=== PATIENT | male | born 1940 | race Caucasian/White ===

== ENCOUNTER 2021-01-25 17:37 | Inpatient (IN) | payer MEDICARE, OTHER ==
[~2021-01-25] VITALS: Ht 188 cm; Wt 145.0 kg
[~2021-01-25 17:37] MED LIST: ALBU90OI6 INH; ASPI81CH PO; ATEN100 PO; AZIT250 PO; Adipex-P37.5 MG PO; BICA50 PO; BUPR100 PO; CARB25 PO; CARBIDOPA-LEVO1 EA15 PO; CLON2 PO; CYCL10 PO; EXEN5PENI SQ; FENO160 PO; FLUT PO; FURO40 PO; FURO80 PO; GABA300 PO; GLYB2.5 PO; GLYB5 PO; Glucophage 850850 MG PO; HYDACE10B PO; HYDACE5 PO; LEVCAR2510 PO; LEVSOD100 PO; LISI20 PO; LOVA20 PO; LOVA40 PO; MELO7.5 PO; METF500 PO; MONT10T PO; NAPR500 PO; OXYB5 PO; POTA10T PO; POTCHL20ER PO; PRAHYD1AE TOP; PRED20 PO; SULTRIDS PO
[2021-01-25 18:16] LABS: Source, Urine Catheter
[2021-01-25 18:19] LABS: BASOPHILS ABSOLUTE AUTO 0.03 K/mm3 (0.00-0.23); BASOPHILS PERCENT AUTO 0 % (0-2); EOSINOPHILS ABSOLUTE AUTO 0.06 K/mm3 (0.00-0.68); EOSINOPHILS PERCENT AUTO 0 % (0-6); Hematocrit 42.3 % (37.0-53.0); Hemoglobin 13.8 g/dL (13.5-17.5); IMMATURE GRAN ABSOLUTE AUTO 0.09 K/mm3 (0.00-0.10); IMMATURE GRAN PERCENT AUTO 1 % (0-1); LYMPHOCYTES ABSOLUTE AUTO 1.04 K/mm3 (0.84-5.20); LYMPHOCYTES PERCENT AUTO 6 % (21-46); MONOCYTES ABSOLUTE AUTO 0.58 K/mm3 (0.16-1.47); MONOCYTES PERCENT AUTO 3 % (4-13); Mean Corpuscular HGB 30.2 pg (26.0-34.0); Mean Corpuscular HGB Conc 32.6 g/dL (31.5-36.5); Mean Corpuscular Volume 93 fL (80-100); Mean Platelet Volume 11.1 fL (9.1-12.4); NEUTROPHILS ABSOLUTE AUTO 16.17 K/mm3 (1.96-9.15); NEUTROPHILS PERCENT AUTO 90 % (41-73); Platelet Count 287 K/mm3 (150-400); RDW Coefficient Variation 13.1 % (11.7-14.2); RDW Standard Deviation 44.1 fL (35.1-46.3); Red Blood Cell Count 4.57 M/mm3 (4.30-5.90); White Blood Cell Count 17.97 K/mm3 (4.00-11.30)
[2021-01-25 18:39] LABS: Appearance, Urine Hazy (Clear); Bilirubin, Urine Neg (Neg); Blood, Urine 1+ (Neg); Color, Urine Yellow (P-Yellow); Glucose Qualitative, Urine Neg (Neg); Ketones, Urine Neg (Neg); Leukocyte Esterase, Urine Neg (Neg); Nitrite, Urine Neg (Neg); Protein, Urine Neg (Neg); Urobilinogen, Urine NORM (Normal)
[2021-01-25 18:45] LABS: Bacteria Mod /hpf; Squamous Epithelial Cells Few /hpf (Few)
[2021-01-25 18:46] LABS: Amorphous Light (0-Heavy)
[2021-01-25 19:44] LABS: Albumin, Blood 3.1 g/dL (3.4-5.0); Albumin/Globulin Ratio 0.7 (0.8-1.8); Bilirubin, Total 0.3 mg/dL (0.1-1.0); Bun/Creatinine Ratio 31.5 (12.0-20.0); Calcium, Blood 8.8 mg/dL (8.5-10.1); Creatinine, Blood 3.81 mg/dL (0.60-1.20); Globulin, Blood 4.6 g/dL (2.2-4.0); Potassium, Blood 6.1 mmol/L (3.5-5.5); Total Protein, Blood 7.7 g/dL (6.4-8.2)
[2021-01-25 19:53] LABS: SARS-Cov-2 (COVID-19) PCR, MMC NEGATIVE (NEGATIVE)
[2021-01-25] MEDS ORDERED: MELATONIN5 M1 PO (20:05)
[2021-01-25] MEDS ORDERED: MIRT15 PO (20:06)
[2021-01-25] MEDS ORDERED: ROPINIROLE HCL4 M1 PO (20:06)
[2021-01-25] MEDS ORDERED: TRAZ50 PO (20:06)
[2021-01-25] MEDS ORDERED: OMEP20ER PO (20:06)
[2021-01-25] MEDS ORDERED: Crestor40 MG PO (20:06)
[2021-01-25] MEDS ORDERED: CARBIDOPA-LEVO1 EA17 PO (20:09)
[2021-01-25] MEDS ORDERED: CLOP75 PO (20:10)
[2021-01-25] MEDS ORDERED: FURO40 PO (20:10)
[2021-01-25] MEDS ORDERED: DONE5 PO (20:10)
[2021-01-25] MEDS ORDERED: GLIM2 PO (20:11)
[2021-01-25] MEDS ORDERED: IPRATROPIUM BRO30 ML (20:11)
[2021-01-25] MEDS ORDERED: POTA8 PO (20:12)
[2021-01-25] MEDS ORDERED: VITAMIN D31000 UNI1 PO (20:14)
[2021-01-25] MEDS ORDERED: EUTHYROX112 MCG PO (20:14)
[2021-01-25] MEDS ORDERED: LISI20 PO (20:15)
[2021-01-25 21:19] LABS: C-REACTIVE PROTEIN, EXT RANGE 2.7 mg/dL (0.000-0.300)
[2021-01-25] MEDS ORDERED: [UNRECOGNIZED DRUG - OTHER] TOP (23:43)
--- NOTE | 2021-01-26 | NUR ---
ASSUMED CARE OF PATIENT AT APPROXIMATELY 2255 FROM ED [facility]. PATIENT ARRIVED TO UNIT VIA STRETCHER; TRANSFER VIA SLIDE SHEET AND MAX ASSIST FROM ED TO PCU STRETCHER. PATIENT LETHARGIC; WAKES TO VERBAL STIMULUS AND PAIN STIMULUS AT TIMES; REPORTS LEGS HURT; CHRONIC WOUNDS; PHOTOS TAKEN. ADMISSION COMPLETE. AFIB ON TELE; OXYGEN SATURATION ABOVE 90% ON 5-6 LPM NC. SEPSIS BOLUS STARTED PER ORDER. PIV X2.
--- NOTE | 2021-01-26 02:50 | NUR ---
CALLED DR. MOONEY TO REPORT BLADDER SCAN OF [phone]; NO URINE OUTPUT SINCE ARRIVAL
[2021-01-26 03:28] LABS: Source, Urine Catheter
[2021-01-26 03:30] LABS: Appearance, Urine Clear (Clear); Bilirubin, Urine Neg (Neg); Blood, Urine Neg (Neg); Color, Urine Yellow (P-Yellow); Glucose Qualitative, Urine Neg (Neg); Ketones, Urine Neg (Neg); Leukocyte Esterase, Urine Neg (Neg); Nitrite, Urine Neg (Neg); Protein, Urine 1+ (Neg); Specific Gravity, Urine 1.015 (1.003-1.022); Urobilinogen, Urine NORM (Normal)
[2021-01-26 04:01] LABS: EOSINOPHILS PERCENT AUTO 0 % (0-6); Hemoglobin 9.5 g/dL (13.5-17.5); IMMATURE GRAN ABSOLUTE AUTO 1.27 K/mm3 (0.00-0.10); IMMATURE GRAN PERCENT AUTO 3 % (0-1); LYMPHOCYTES ABSOLUTE AUTO 3.06 K/mm3 (0.84-5.20); LYMPHOCYTES PERCENT AUTO 7 % (21-46); MONOCYTES ABSOLUTE AUTO 2.61 K/mm3 (0.16-1.47); MONOCYTES PERCENT AUTO 6 % (4-13); Mean Corpuscular HGB 30.8 pg (26.0-34.0); Mean Corpuscular HGB Conc 32.8 g/dL (31.5-36.5); Mean Corpuscular Volume 94 fL (80-100); Mean Platelet Volume 11.2 fL (9.1-12.4); NEUTROPHILS ABSOLUTE AUTO 39.95 K/mm3 (1.96-9.15); NEUTROPHILS PERCENT AUTO 85 % (41-73); Platelet Count 238 K/mm3 (150-400); RDW Coefficient Variation 13.2 % (11.7-14.2); RDW Standard Deviation 45.3 fL (35.1-46.3); Red Blood Cell Count 3.08 M/mm3 (4.30-5.90); White Blood Cell Count 46.94 K/mm3 (4.00-11.30)
[2021-01-26 04:04] LABS: BASOPHILS ABSOLUTE AUTO 0.05 K/mm3 (0.00-0.23); BASOPHILS PERCENT AUTO 0 % (0-2)
[2021-01-26 04:20] LABS: Alanine Aminotransfer (ALT/SGP 11 U/L (12-78); Albumin, Blood 2.5 g/dL (3.4-5.0); Albumin/Globulin Ratio 0.7 (0.8-1.8); Alk Phos 46 U/L (50-136); Anion Gap 5 mmol/L (6-16); Aspartate Aminotrans (AST/SGOT 11 U/L (12-37); Bilirubin, Total 0.3 mg/dL (0.1-1.0); Blood Urea Nitrogen 119 mg/dL (8-24); Bun/Creatinine Ratio 29.3 (12.0-20.0); CO2, Blood 23 mmol/L (21-32); Calcium, Blood 7.9 mg/dL (8.5-10.1); Chloride, Blood 112 mmol/L (98-108); Creatinine, Blood 4.06 mg/dL (0.60-1.20); Globulin, Blood 3.8 g/dL (2.2-4.0); Glomerular Filtration Rate 14 (60-); Glucose, Blood 184 mg/dL (70-99); Magnesium, Blood 1.6 mg/dL (1.6-2.4); Phosphorus, Blood 4.2 mg/dL (2.5-4.9); Potassium, Blood 5.5 mmol/L (3.5-5.5); Sodium, Blood 140 mmol/L (136-145); Total Protein, Blood 6.3 g/dL (6.4-8.2); Vancomycin, Random 13.4 ug/mL
--- NOTE | 2021-01-26 06:21 | NUR ---
NO ACUTE CHANGES; PATIENT SLEPT MOST OF THE SHIFT. VSS. URINARY CATH PLACED.
--- NOTE | 2021-01-26 13:36 | NUR ---
1130- CALLED DR ANDREWS AND RESIDENT LALI TO COME AND EVAL PT AT BEDSIDE. PT MORE OBTUNDED BARELY RESPONDING TO STERNAL RUB. REQUIRING MORE OXYGEN FROM 3L NC TO 10L ORAL BREATING. PERIODS OF APNEA. PERIODS OF TREMORS (HX PARKINSONS). DIURESING- 800ML OFF LAST 2 HOURS, BP HAS BEEN A LITTLE LOWER. VBG CHECKED CO2 WNL. BOTH DR'S AT BEDSIDE TO EVAL. NEW ORDERS TO FOLLOW.
[2021-01-26 13:47] LABS: BASOPHILS ABSOLUTE AUTO 0.11 K/mm3 (0.00-0.23); BASOPHILS PERCENT AUTO 0 % (0-2); EOSINOPHILS ABSOLUTE AUTO 0.07 K/mm3 (0.00-0.68); EOSINOPHILS PERCENT AUTO 0 % (0-6); Hematocrit 28.1 % (37.0-53.0); Hemoglobin 9.2 g/dL (13.5-17.5); IMMATURE GRAN ABSOLUTE AUTO 0.42 K/mm3 (0.00-0.10); IMMATURE GRAN PERCENT AUTO 1 % (0-1); LYMPHOCYTES ABSOLUTE AUTO 2.58 K/mm3 (0.84-5.20); LYMPHOCYTES PERCENT AUTO 7 % (21-46); MONOCYTES ABSOLUTE AUTO 2.16 K/mm3 (0.16-1.47); MONOCYTES PERCENT AUTO 6 % (4-13); Mean Corpuscular HGB 30.8 pg (26.0-34.0); Mean Corpuscular HGB Conc 32.7 g/dL (31.5-36.5); Mean Corpuscular Volume 94 fL (80-100); Mean Platelet Volume 11.1 fL (9.1-12.4); NEUTROPHILS ABSOLUTE AUTO 32.34 K/mm3 (1.96-9.15); NEUTROPHILS PERCENT AUTO 86 % (41-73); Platelet Count 246 K/mm3 (150-400); RDW Coefficient Variation 13.3 % (11.7-14.2); RDW Standard Deviation 46.3 fL (35.1-46.3); Red Blood Cell Count 2.99 M/mm3 (4.30-5.90); White Blood Cell Count 37.68 K/mm3 (4.00-11.30)
[2021-01-26 14:08] LABS: Bun/Creatinine Ratio 29.1 (12.0-20.0); Calcium, Blood 8.5 mg/dL (8.5-10.1); Creatinine, Blood 3.78 mg/dL (0.60-1.20); Potassium, Blood 4.8 mmol/L (3.5-5.5)
--- NOTE | 2021-01-26 17:25 | NUR ---
SUMMARY- PT VERY OBTUNDED THIS AM AND HAS BECOME MORE ALERT THROUGHOUT THE SHIFT. AWAKENS EASILY WITH VERBAL STIM IS JOVIAL AND RESTLESS WHEN AWAKE. PULLS OFF TELE LEADS, PULLED OUT ONE IV, PULLED NAME BAND OFF- AND BP CUFF CONTINUALLY DESPITE FREQ REMINDERS. DIURESING PT PULLED OFF OVER 3 LITERS THIS 12 HR SHIFT. JO PATENT, ON ICE FOR 24HR UUN. PT TOLERATED PILLS AT 1330 WITH SIPS OF WATER, WAS ABLE TO GET HIM HIS SINIMET, PLAVIX AND THYROID. PT HAVING LESS APNEA NOT THAT HE IS AWAKENING AND REQUIRING LESS OXYGEN, AT 3L NC, SATS 95-97%. FINE CX IN BASES OTHERWISE DIM BASES. LE EDEMA WITH OPEN SORES AND SCAND SS DRAINAGE, LEGS BEGINING TO WRINKLE PULLING OFF MORE FLUIDS. ECHO DONE 1635- PENDING RESULTS. SPEECH UNABLE TO EVAL BECAUSE PT TO LETHARGIC THIS AM. CONT NA-BIBICARB AT 50ML/HR FOR GENTLE HYDRATION. FREQ SAFETY CHECKS PT AWAKENS AND PULLING THINGS OFF. WILL REPORT TO NOCS
--- NOTE | 2021-01-27 01:57 | NUR ---
PT KEEPS PULLING OUT OF THE WRIST RESTRAINTS - KEEP PLACING BACK ON, BUT PT IS ABLE TO REMOVE THEM EACH TIME. PT KEEPS PULLING OF TELE PADS - KEEP REMINDING PT FOR THE NEED TO KEEP THE TELE PADS ON FOR HEART MONITORING, SAYS "I'LL TRY." CALL LIGHT WITHIN REACH. JO/24 HOUR URINE ON ICE THROUGHOUT THE NIGHT. BED ALARM ON FOR PATIENT SAFETY.
[2021-01-27 04:03] LABS: BASOPHILS ABSOLUTE AUTO 0.06 K/mm3 (0.00-0.23); BASOPHILS PERCENT AUTO 0 % (0-2); EOSINOPHILS PERCENT AUTO 0 % (0-6); Hematocrit 31.3 % (37.0-53.0); Hemoglobin 10.2 g/dL (13.5-17.5); IMMATURE GRAN ABSOLUTE AUTO 0.28 K/mm3 (0.00-0.10); IMMATURE GRAN PERCENT AUTO 1 % (0-1); LYMPHOCYTES ABSOLUTE AUTO 2.32 K/mm3 (0.84-5.20); LYMPHOCYTES PERCENT AUTO 8 % (21-46); MONOCYTES ABSOLUTE AUTO 1.64 K/mm3 (0.16-1.47); MONOCYTES PERCENT AUTO 6 % (4-13); Mean Corpuscular HGB 30.3 pg (26.0-34.0); Mean Corpuscular HGB Conc 32.6 g/dL (31.5-36.5); Mean Corpuscular Volume 93 fL (80-100); Mean Platelet Volume 11.6 fL (9.1-12.4); NEUTROPHILS ABSOLUTE AUTO 23.76 K/mm3 (1.96-9.15); NEUTROPHILS PERCENT AUTO 84 % (41-73); Platelet Count 243 K/mm3 (150-400); RDW Coefficient Variation 13.3 % (11.7-14.2); RDW Standard Deviation 45.2 fL (35.1-46.3); Red Blood Cell Count 3.37 M/mm3 (4.30-5.90); White Blood Cell Count 28.16 K/mm3 (4.00-11.30)
[2021-01-27 04:22] LABS: Albumin, Blood 2.5 g/dL (3.4-5.0); Anion Gap 6 mmol/L (6-16); Blood Urea Nitrogen 98 mg/dL (8-24); Bun/Creatinine Ratio 29.9 (12.0-20.0); CO2, Blood 28 mmol/L (21-32); CPK Creatine Kinase 227 U/L (39-308); Calcium, Blood 8.9 mg/dL (8.5-10.1); Chloride, Blood 109 mmol/L (98-108); Creatinine, Blood 3.28 mg/dL (0.60-1.20); Glomerular Filtration Rate 18 (60-); Glucose, Blood 143 mg/dL (70-99); Magnesium, Blood 1.5 mg/dL (1.6-2.4); Phosphorus, Blood 4.5 mg/dL (2.5-4.9); Potassium, Blood 4.4 mmol/L (3.5-5.5); Sodium, Blood 143 mmol/L (136-145); Uric Acid, Blood 10.5 mg/dL (3.5-7.2)
--- NOTE | 2021-01-27 05:29 | NUR ---
PT PULLED HIS SECOND IV OUT - WRIST RESTRAINTS WERE PLACED ON, BUT PT KEEPS REMOVING THEM - UPDATED WILLIE GUILLAUME. WILLIE GUILLAUME AWARE PT KEEPS REMOVING WRIST RESTRAINTS. SOFT MITT RESTRAINTS PLACED ON.
[2021-01-27 08:45] LABS: Vancomycin, Random 13.5 ug/mL
[2021-01-27 11:02] LABS: Protein, Urine Quantitative 24.8 mg/dL (0.0-11.9)
[2021-01-27 14:42] LABS: Free Thyroxine 1.18 ng/dL (0.70-1.60)
[2021-01-27 14:45] LABS: Triiodothyronine, Free 1.03 pg/mL (2.18-3.98)
--- NOTE | 2021-01-27 18:43 | NUR ---
SUMMARY- PT ALERT TO SELF AND FAMILY ANT THAT HE'S IN THE HOSPITAL. HE IS VERBAL AND ABLE TO RELAY INFORMATION OF HIS HISTORY. HE IS ABLE TO EAT A ADA DIET WITH SET UP AND ASSIST. SWALLOW INTACT WITH SLOW SMALL BITES. THIN LIQ SWALLOWS MEDS WHOLE. CONTINUING TO DIURESE WITH JO IN PLACE. PT PLACED IN RESTRAINTS THIS AM AFTER PULLING OUT HIS IV WITCH WAS THE 3RD THAT NIGHT. GOT PT UP IN CHAIR, 2 PIVOT TX WITH GAIT BELT. UP IN CHAIR ALL DAY SINCE 1000, REFUSES TO GO BACK TO BED. HAS BECOME LESS AGITATED IN THE CHAIR. ABLE TO JUST RESTRAIN THE L HAND TO PROTECT THE IV IN THE RA. CONT TO PULL TELE LEADS OFF... BUT BETTER DIRECTABLE THIS PM AND LESS FIDGITY. REPORT GIVEN TO DAUGHTER JIHAN FROM [facility], LIKES DAILY REPORTS. PT TOOK O2 OFF, CHECKED SATS HR LATER AND REMAINS 92%. ON ROOM AIR, JUSTO CHAHAL
--- NOTE | 2021-01-27 20:05 | NUR ---
ASSUMED CARE OF PATIENT AT APPROXIMATELY 1900 FROM MURALI Weber RN. PATIENT ALERT AND ORIENTED TO SELF AND ; CONFUSED ON LOCATION, CURRENT DATE AND EVENT; VERY FORGETFUL; PULLS ON LINES/CORDS/TUBES; TUFF CUFF RESTRAINTS IN PLACE DUE TO SOFT WRIST RESTRAINTS BEING TOO SMALL FOR WRISTS AND PATIENT ABLE TO PULL THEM OFF. PATIENT LAUGHS WHEN ASKED QUESTIONS AND ANSWERS "I DON'T KNOW" FOR MOST OF THEM; SITTING UP IN RECLINER; FALLING ASLEEP OFF AND ON. AFIB/NSR ON TELE; OXYGEN SATURATION ABOVE 90% ON ROOM AIR. PIV X2. MULTIPLE WOUNDS TO LEGS.
[2021-01-27 21:50] LABS: U Amphetamine Screen Not Detected; U Barbituate Screen Not Detected; U Benzodiazapine Screen Not Detected; U Buprenorphine Screen Not Detected; U Cannabinoids Screen Not Detected; U Cocaine Screen Not Detected; U Methadone Screen Not Detected; U Methamphetamine Screen Not Detected; U Opiates Screen Not Detected; U Oxycodone Screen Not Detected; U Phencyclidine Screen Not Detected; U Propoxyphene Screen Not Detected
[2021-01-28 04:10] LABS: Hematocrit 33.1 % (37.0-53.0); Hemoglobin 10.5 g/dL (13.5-17.5)
[2021-01-28 04:41] LABS: Albumin, Blood 2.6 g/dL (3.4-5.0); Anion Gap 7 mmol/L (6-16); Blood Urea Nitrogen 81 mg/dL (8-24); Bun/Creatinine Ratio 31.6 (12.0-20.0); CO2, Blood 27 mmol/L (21-32); Chloride, Blood 104 mmol/L (98-108); Creatinine, Blood 2.56 mg/dL (0.60-1.20); Glomerular Filtration Rate 24 (60-); Glucose, Blood 194 mg/dL (70-99); Magnesium, Blood 1.9 mg/dL (1.6-2.4); Phosphorus, Blood 3.8 mg/dL (2.5-4.9); Potassium, Blood 3.9 mmol/L (3.5-5.5); Sodium, Blood 138 mmol/L (136-145)
--- NOTE | 2021-01-28 06:38 | NUR ---
PATIENT SLEPT ABOUT TWO HOURS OFF AND ON; CALLING OUT INTO HALLWAY AND REPORTS "I DON'T KNOW" WHEN ASKED WHAT HE NEEDS. PATIENT PULLED OUT IV WHEN SITTING IN CHAIR; NEW PIV PLACED. VSS. ATTEMPTED TO GET OUT OF BED MULTIPLE TIMES.
[2021-01-28 09:41] LABS: Vancomycin, Random 16.9 ug/mL
--- NOTE | 2021-01-28 10:55 | NUR ---
TRANSFER TO MEDICAL FLOOR REPORT GIVEN TO DAYA SWANSON ON MEDICAL FLOOR. ITEMS SENT WITH PT TO ROOM 337. PT STABLE AT TIME OF TRANSFER.
--- NOTE | 2021-01-28 18:12 | NUR ---
SHIFT SUMMARY PATIENT TRANSFER FROM PCU EARLIER THIS SHIFT. PATIENT WAS ADMITTED FOR SEPSIS AND IS ALERTED TO SELF ONLY. PATIENT IS HAS ADA DIET. PATIENT HAS PULLED OUT HIS IV THIS SHIFT. HAS ONE ADDITIONAL IV. PATIENT HAS SCATTERED WOUNDS AND HAS BEEN REPOSITIONED FREQUENTLY AND OCCASIONALY TRIES TO GET OUT OF BED.
--- NOTE | 2021-01-29 03:26 | NUR ---
DISCUSSED CPAP W/RESPIRATORY THERAPY PT IS NONCOMPLIANT WITH CPAP AT HOME. PT IS KNOWN TO REFUSE CPAP AT HIS FACILITY. PT IS VERY CONFUSED AND IMPULSIVE, FREQUENTLY ATTEMPTING TO EXIT THE BED. HE PULLS IV'S OUT FREQUENTLY. DUE TO HIS CONFUSION, I DO NOT BELIEVE HIM TO BE COMPETENT ENOUGH TO SIGN PAPERWORK REGARDING THIS. I ALSO DO NOT BELIEVE HE WILL TOLERATE A CPAP DEVICE ON HIS FACE.
--- NOTE | 2021-01-29 04:35 | NUR ---
SHIFT SUMMARY ADMITTED FOR FROM [facility] FOR AMS/RL ON CKD. FULL CODE. PLAN WILL BE TO DC TO [facility] W/HH WHEN STABLE.JO IS IN PLACE. PT IS CONFUSED, IMPULSIVE, FREQUENTLY TRYING TO EXIT BED, FREQUENTLY REMOVING IV'S, ANOTHER IV REMOVED THIS SHIFT. IV ANTIB RX IS SCHEDULED. HE IS ON PLAVIX. I SAW AN ORDER FOR CPAP, BUT RESPIRATORY THERAPY AND MYSELF DO NOT THINK HE WILL TOLERATE IT. I SAW IN DR'S NOTES THAT THEY WANTED A FLUID RESTRICTION, BUT I CANNOT FIND AN ORDER FOR IT. LEGS ARE EXCORIATED - BILAT
[2021-01-29 05:48] LABS: BASOPHILS ABSOLUTE AUTO 0.04 K/mm3 (0.00-0.23); BASOPHILS PERCENT AUTO 0 % (0-2); EOSINOPHILS ABSOLUTE AUTO 0.67 K/mm3 (0.00-0.68); EOSINOPHILS PERCENT AUTO 5 % (0-6); Hematocrit 33.9 % (37.0-53.0); Hemoglobin 11.3 g/dL (13.5-17.5); IMMATURE GRAN ABSOLUTE AUTO 0.08 K/mm3 (0.00-0.10); IMMATURE GRAN PERCENT AUTO 1 % (0-1); LYMPHOCYTES ABSOLUTE AUTO 3.09 K/mm3 (0.84-5.20); LYMPHOCYTES PERCENT AUTO 25 % (21-46); MONOCYTES ABSOLUTE AUTO 1.06 K/mm3 (0.16-1.47); MONOCYTES PERCENT AUTO 8 % (4-13); Mean Corpuscular HGB 30.5 pg (26.0-34.0); Mean Corpuscular HGB Conc 33.3 g/dL (31.5-36.5); Mean Corpuscular Volume 91 fL (80-100); Mean Platelet Volume 11.6 fL (9.1-12.4); NEUTROPHILS ABSOLUTE AUTO 7.64 K/mm3 (1.96-9.15); NEUTROPHILS PERCENT AUTO 61 % (41-73); Platelet Count 290 K/mm3 (150-400); RDW Coefficient Variation 12.2 % (11.7-14.2); RDW Standard Deviation 41.2 fL (35.1-46.3); Red Blood Cell Count 3.71 M/mm3 (4.30-5.90); White Blood Cell Count 12.58 K/mm3 (4.00-11.30)
[2021-01-29 06:19] LABS: Anion Gap 8 mmol/L (6-16); Blood Urea Nitrogen 64 mg/dL (8-24); Bun/Creatinine Ratio 27.9 (12.0-20.0); CO2, Blood 29 mmol/L (21-32); Calcium, Blood 9.2 mg/dL (8.5-10.1); Chloride, Blood 103 mmol/L (98-108); Creatinine, Blood 2.29 mg/dL (0.60-1.20); Glomerular Filtration Rate 28 (60-); Glucose, Blood 234 mg/dL (70-99); Potassium, Blood 3.6 mmol/L (3.5-5.5); Sodium, Blood 140 mmol/L (136-145); Vancomycin, Random 19.1 ug/mL
[2021-01-29 14:08] LABS: A/G RATIO 0.8 (0.7-1.7); ALBUMIN 2.6 g/dL (2.9-4.4); ALPHA-1-GLOBULIN 0.3 g/dL (0.0-0.4); BETA GLOBULIN 0.8 g/dL (0.7-1.3); GAMMA GLOBULIN 1.3 g/dL (0.4-1.8); GLOBULIN, TOTAL 3.4 g/dL (2.2-3.9); IMMUNOGLOBULIN A, QN, SERUM 53 mg/dL (61-437); IMMUNOGLOBULIN G, QN, SERUM 679 mg/dL (603-1613); IMMUNOGLOBULIN M, QN, SERUM 958 mg/dL (15-143); M-SPIKE 0.7 g/dL (Not Observed)
--- NOTE | 2021-01-29 16:15 | NUR ---
SHIFT SUMMARY PATIENT IS A/O X2. THE PATIENT IS COOPERATIVE WITH CARE, WORKED WITH PHYSICAL THERAPY AND SPEECH THERAPY THIS SHIFT. NO ACUTE CHANGES NOTED THIS SHIFT. THE PATIENT'S BED ALARM IS ON, AND CALL LIGHT WITHIN REACH.THE PATIENT WILL CALL OUT FOR HELP INSTEAD. THE BED IS IN THE LOWEST POSITION FOR THE PATIENT'S SAFETY.
--- NOTE | 2021-01-30 03:18 | NUR ---
SHIFT SUMMARY PT PRESENTS ON BED REST. NPO. LOWER LEGS ARE EDEMATOUS WITH MULTIPLE OPEN SORES/WOUNDS/SCABS.SKIN ECCHYMOTIC TO UPPER BILAT EXTREMITIES. PT HAS HX OF DEMENTIA, AND IS PLEASANTLY CONFUSED WITH STAFF. JO IN PLACE AND DRAINING TO GRAVITY. ROOM AIR, MAINTAINING SATS ABOVE 92%. DUE TO CONFUSION, CPAP MASK WILL MOST LIKELY NOT BE WELL TOLERATED. PT HAS REMOVED SEVERAL IV'S ON HIS OWN. THIS EVENING, IV WAS INSERTED INTO RIGHT FOREARM FOR IV ANTIBIOTICS. SATS REMAIN ABOVE 92%. VSS, NO ACUTE CHANGES.
[2021-01-30 05:09] LABS: BASOPHILS ABSOLUTE AUTO 0.05 K/mm3 (0.00-0.23); BASOPHILS PERCENT AUTO 0 % (0-2); EOSINOPHILS ABSOLUTE AUTO 0.57 K/mm3 (0.00-0.68); EOSINOPHILS PERCENT AUTO 5 % (0-6); Hemoglobin 11.1 g/dL (13.5-17.5); IMMATURE GRAN ABSOLUTE AUTO 0.08 K/mm3 (0.00-0.10); IMMATURE GRAN PERCENT AUTO 1 % (0-1); LYMPHOCYTES ABSOLUTE AUTO 3.19 K/mm3 (0.84-5.20); LYMPHOCYTES PERCENT AUTO 28 % (21-46); MONOCYTES ABSOLUTE AUTO 1.19 K/mm3 (0.16-1.47); MONOCYTES PERCENT AUTO 10 % (4-13); Mean Corpuscular HGB 30.2 pg (26.0-34.0); Mean Corpuscular HGB Conc 32.6 g/dL (31.5-36.5); Mean Corpuscular Volume 93 fL (80-100); Mean Platelet Volume 11.4 fL (9.1-12.4); NEUTROPHILS ABSOLUTE AUTO 6.54 K/mm3 (1.96-9.15); NEUTROPHILS PERCENT AUTO 56 % (41-73); Platelet Count 284 K/mm3 (150-400); RDW Coefficient Variation 12.1 % (11.7-14.2); RDW Standard Deviation 41.4 fL (35.1-46.3); Red Blood Cell Count 3.67 M/mm3 (4.30-5.90); White Blood Cell Count 11.62 K/mm3 (4.00-11.30)
[2021-01-30 05:31] LABS: Magnesium, Blood 2.2 mg/dL (1.6-2.4)
[2021-01-30 05:57] LABS: Albumin, Blood 2.8 g/dL (3.4-5.0); Anion Gap 7 mmol/L (6-16); CO2, Blood 32 mmol/L (21-32); Calcium, Blood 9.1 mg/dL (8.5-10.1); Chloride, Blood 104 mmol/L (98-108); Creatinine, Blood 2.11 mg/dL (0.60-1.20); Glomerular Filtration Rate 30 (60-); Glucose, Blood 227 mg/dL (70-99); Phosphorus, Blood 3.8 mg/dL (2.5-4.9); Potassium, Blood 3.6 mmol/L (3.5-5.5); Sodium, Blood 143 mmol/L (136-145)
[2021-01-30 05:58] LABS: Blood Urea Nitrogen 57 mg/dL (8-24)
[2021-01-30 09:10] LABS: ANTIGLOMERULAR BM AB 7 units (0-20)
--- NOTE | 2021-01-30 10:36 | NUR ---
LATE ENTRY 01/29/21 0900 PT IN ROOM, AAO TO SELF, PLEASANTLY CONFUSED, REDIRECTABLE BY STAFF. ABLE TO FOLLOW SIMPLE INSTRUCTIONS. PT APPEARS CALM AND COMFORTABLE IN BED. PT OFF RESTRAINTS. NO ATTEMPTS OF BED EXITING NOTED. BED AT LOWEST POSITION W/ ALARM ON. CALL LIGHT WITHIN REACH.
[2021-01-30 13:10] LABS: ANA DIRECT Negative (Negative); ANTIMYELOPEROXIDASE (MPO) ABS <9.0 U/mL (0.0-9.0); ATYPICAL PANCA <1:20 titer (Neg:<1:20); CYTOPLASMIC (C-ANCA) <1:20 titer (Neg:<1:20); PERINUCLEAR (P-ANCA) <1:20 titer (Neg:<1:20)
--- NOTE | 2021-01-30 18:54 | NUR ---
SHIFT SUMMARY THE PATIENT IS NPO, AFTER A SWALLOW STUDY WAS DONE. THE PATIENT WAS STARTED ON TPN AND CLINIMIX THIS SHIFT. THE PATIENT IS RESTING IN BED WITH THE ALARM ON.
[2021-01-31 05:10] LABS: BASOPHILS ABSOLUTE AUTO 0.06 K/mm3 (0.00-0.23); BASOPHILS PERCENT AUTO 1 % (0-2); EOSINOPHILS ABSOLUTE AUTO 0.62 K/mm3 (0.00-0.68); EOSINOPHILS PERCENT AUTO 5 % (0-6); Hematocrit 35.4 % (37.0-53.0); Hemoglobin 11.5 g/dL (13.5-17.5); IMMATURE GRAN PERCENT AUTO 1 % (0-1); LYMPHOCYTES ABSOLUTE AUTO 3.06 K/mm3 (0.84-5.20); LYMPHOCYTES PERCENT AUTO 25 % (21-46); MONOCYTES ABSOLUTE AUTO 1.26 K/mm3 (0.16-1.47); MONOCYTES PERCENT AUTO 10 % (4-13); Mean Corpuscular HGB 30.4 pg (26.0-34.0); Mean Corpuscular HGB Conc 32.5 g/dL (31.5-36.5); Mean Corpuscular Volume 94 fL (80-100); Mean Platelet Volume 11.4 fL (9.1-12.4); NEUTROPHILS ABSOLUTE AUTO 7.17 K/mm3 (1.96-9.15); NEUTROPHILS PERCENT AUTO 58 % (41-73); Platelet Count 289 K/mm3 (150-400); RDW Standard Deviation 41.8 fL (35.1-46.3); Red Blood Cell Count 3.78 M/mm3 (4.30-5.90); White Blood Cell Count 12.27 K/mm3 (4.00-11.30)
[2021-01-31 05:52] LABS: Magnesium, Blood 2.2 mg/dL (1.6-2.4)
[2021-01-31 06:09] LABS: Bun/Creatinine Ratio 23.7 (12.0-20.0); Calcium, Blood 9.2 mg/dL (8.5-10.1); Creatinine, Blood 1.98 mg/dL (0.60-1.20); Potassium, Blood 3.3 mmol/L (3.5-5.5)
--- NOTE | 2021-01-31 17:33 | NUR ---
SHIFT SUMMARY: PT IS DISORIENTED TO SITUATION. FREQUENTLY MOANS BUT DENIES PAIN. IS ABLE TO STAND WITH STAFF ASSIST OF 1. CLINIMIX RUNNING. WOUNDS BLE OPEN TO AIR. HOURLY ROUNDING COMPLETED FOR PT SAFETY BED ALARMS ON AND CALL LIGHT IN REACH.
--- NOTE | 2021-01-31 20:01 | NUR ---
patient extremely anxious, scratching leg wounds open despite intended distractions. sitting on side of bed trying to get oob despite alarms. pleasantly confused, but very little short term memory, and determined to stand on own which would definately cause injury if staff couldn't get to him in time. Call placed to MD to notify, and discuss medication vs restraints.
--- NOTE | 2021-02-01 00:38 | NUR ---
at approximately 2200, patient pulled both his peripheral and powerglide iv accesses out. both IV antibiotic and Clinimix with lipids were running at the time. New 20 guage saline lock placed in left forearm. IV antibiotic was completed, then Clinimix and Lipids were resumed.
[2021-02-01 04:49] LABS: Hematocrit 34.6 % (37.0-53.0); Hemoglobin 11.4 g/dL (13.5-17.5)
[2021-02-01 05:31] LABS: Magnesium, Blood 2.4 mg/dL (1.6-2.4)
[2021-02-01 05:40] LABS: Albumin, Blood 2.8 g/dL (3.4-5.0); Anion Gap 8 mmol/L (6-16); Blood Urea Nitrogen 46 mg/dL (8-24); Bun/Creatinine Ratio 25.8 (12.0-20.0); CO2, Blood 30 mmol/L (21-32); Calcium, Blood 8.9 mg/dL (8.5-10.1); Chloride, Blood 107 mmol/L (98-108); Creatinine, Blood 1.78 mg/dL (0.60-1.20); Glomerular Filtration Rate 37 (60-); Glucose, Blood 264 mg/dL (70-99); Phosphorus, Blood 4.2 mg/dL (2.5-4.9); Potassium, Blood 3.3 mmol/L (3.5-5.5); Sodium, Blood 145 mmol/L (136-145)
--- NOTE | 2021-02-01 08:33 | NUR ---
FULLER BRUSH WORKER SUMMARY Patient awake most of night. pleasant and tries to be cooperative with care, however he has a very little amount of retention, and was constantly trying to swing feet out of bed and scratching wounds open. after this, dory removed both his peripheral line and his powerglide. Peripheral line replaced for IV antibiotics and Clinimix. Order for IV haldol received dand given with no result. Order then received for 0.5mg IV Ativan which worked well to halp him relax. No further issues overnight
--- NOTE | 2021-02-01 10:30 | NUR ---
Met with Shravan this morning in his room. He has a history of Parkinson's disease, DM, HTN, anxiety, dementia, depression, reflux. He was admitted to [facility] on 01/25/21 with sepsis. He lives at [facility]. Shravan is lying in bed. He has picked at the scabs and skin off his legs and has placed the scabs and skin on his bedside table. He is alert, however he appears quite forgetful. When asked how long he has had the Parkinson's disease he said "I don't have that." When asked where he lives and what his usual activity level he stated "I don't know." When asked how long he has had trouble swallowing he said "I don't have any problems with that." He denies pain, shortness of breath. He states he has some numbess to his toes. Nursing reports that pt told ST that he wanted to eat and drink and that he understood the risks of aspirating if he tried to eat. During my visit, Shravan was not oriented enough to be able to understand the risks of his choices of wanting to eat and aspirating. Nursing reports that Shravan will be discharged to rehab this afternoon. If pt is adament about eating, his decision maker will have to sign a waver for him to be able to eat if he continues to show signs of confusion. Comfort care could be an option for care however the current goal of going to rehab to improve function to get back home doesn't align with comfort care at this time. Per CM notes, pt's dtr is in agreement with plan for discharge to rehab this afternoon. PC to remain available for advanced care planning prn. Pt is a high risk of readmission for continued aspiration.
[2021-02-01 11:13] LABS: SARS-Cov-2 (COVID-19) PCR, MMC NEGATIVE (NEGATIVE)
[2021-02-01] MEDS ORDERED: BUME2 PO (11:58)
[2021-02-01] MEDS ORDERED: AMLO5 PO (12:01)
[2021-02-01] MEDS ORDERED: CEFAZOLIN2 GM/50 M3 IV (12:03)
[2021-02-01] MEDS ORDERED: SPIR25 PO (12:04)
--- NOTE | 2021-02-01 16:38 | NUR ---
DISCHARGE SUMMARY PATIENT IV REMOVED WNL. PATIENT BELONGINGS WITH PATIENT UPON DISCHARGE. [facility]. REPORT GIVEN TO [facility] REAL ESTATE SALES SUPERVISOR.
== END 2021-02-01 16:13 | DRG 871 ==
LOC: ER 17:37 → MEDS 20:37 → PCU 20:37 → MEDS 01-28 11:16 → ENPENDDIS 02-01 10:35 → MEDS 02-01 16:13
PROVIDERS: Family Medicine; Hospitalist; Internal Medicine; Internal Medicine Nephrology; Pharmacist; Student in an Organized Health Care Education/Training Program; ADMIT Internal Medicine
DX: A40.1 Sepsis due to streptococcus, group B (principal); G92 Toxic encephalopathy; N17.9 Acute kidney failure, unspecified; E87.2 Acidosis; N25.81 Secondary hyperparathyroidism of renal origin; Z68.41 Body mass index [BMI] 40.0-44.9, adult; N39.0 Urinary tract infection, site not specified; Z20.822 Contact with and (suspected) exposure to COVID-19; Z66 Do not resuscitate; R65.20 Severe sepsis without septic shock; E83.42 Hypomagnesemia; E87.5 Hyperkalemia; I48.91 Unspecified atrial fibrillation; E03.9 Hypothyroidism, unspecified; G43.909 Migraine, unspecified, not intractable, without status migrainosus; G20 Parkinson's disease; F32.9 Major depressive disorder, single episode, unspecified; I12.9 Hypertensive chronic kidney disease with stage 1 through stage 4 chronic kidney disease, or unspecified chronic kidney disease; E11.22 Type 2 diabetes mellitus with diabetic chronic kidney disease; E88.09 Other disorders of plasma-protein metabolism, not elsewhere classified; D63.1 Anemia in chronic kidney disease; E87.6 Hypokalemia; E66.01 Morbid (severe) obesity due to excess calories; R13.10 Dysphagia, unspecified; B96.1 Klebsiella pneumoniae [K. pneumoniae] as the cause of diseases classified elsewhere; K21.9 Gastro-esophageal reflux disease without esophagitis; I89.0 Lymphedema, not elsewhere classified; G47.33 Obstructive sleep apnea (adult) (pediatric); N18.30 Chronic kidney disease, stage 3 unspecified; F02.80 Dementia in other diseases classified elsewhere, unspecified severity, without behavioral disturbance, psychotic disturbance, mood disturbance, and anxiety; G25.81 Restless legs syndrome; G47.00 Insomnia, unspecified; Z88.1 Allergy status to other antibiotic agents; Z88.8 Allergy status to other drugs, medicaments and biological substances; Z91.09 Other allergy status, other than to drugs and biological substances; Z79.899 Other long term (current) drug therapy; Z79.82 Long term (current) use of aspirin; Z79.84 Long term (current) use of oral hypoglycemic drugs; Z85.46 Personal history of malignant neoplasm of prostate; Z98.890 Other specified postprocedural states
CPT/HCPCS: 36415; 51702; 70450; 71045; 73700; 74230; 76770; 80048; 80053; 80069; 80202; 81001; 81050; 82550; 82784; 82947; 83036; 83516; 83520; 83605; 83735; 84100; 84145; 84156; 84165; 84439; 84443; 84481; 84550; 85014; 85018; 85025; 85651; 86038; 86140; 86256; 86334; 87040; 87070; 87075; 87077; 87086; 87147; 87186; 87205; 92526; 92610; 92611; 93005; 93010; 93306; 94762; 96365; 96366; 96367; 96368; 96375; 97110; 97116; 97162; 97166; 97530; 97535; 99285-25; A9270; C1751; J0360; J0690; J0692; J1630; J1644; J1815; J2060; J3370; J3475; J3480; J7030; J7050; J7120; J7799; U0004

== ENCOUNTER 2021-02-06 13:32 | Emergency (ER) | payer MEDICARE, OTHER ==
[~2021-02-06] VITALS: Ht 177.8 cm; Wt 149.7 kg
[~2021-02-06 13:32] MED LIST changes: +AMLO5 PO; +BUME2 PO; +CARBIDOPA-LEVO1 EA17 PO; +CEFAZOLIN2 GM/50 M3 IV; +CLOP75 PO; +Crestor40 MG PO; +DONE5 PO; +EUTHYROX112 MCG PO; +GLIM2 PO; +IPRATROPIUM BRO30 ML; +MELATONIN5 M1 PO; +MIRT15 PO; +OMEP20ER PO; +POTA8 PO; +ROPINIROLE HCL4 M1 PO; +SPIR25 PO; +TRAZ50 PO; +VITAMIN D31000 UNI1 PO; +[UNRECOGNIZED DRUG - OTHER] TOP
[2021-02-06 14:39] LABS: Hematocrit 34.1 % (37.0-53.0); Hemoglobin 11.1 g/dL (13.5-17.5); Mean Corpuscular HGB 30.2 pg (26.0-34.0); Mean Corpuscular HGB Conc 32.6 g/dL (31.5-36.5); Mean Corpuscular Volume 93 fL (80-100); Mean Platelet Volume 12.2 fL (9.1-12.4); Platelet Count 273 K/mm3 (150-400); RDW Coefficient Variation 12.7 % (11.7-14.2); RDW Standard Deviation 42.9 fL (35.1-46.3); Red Blood Cell Count 3.67 M/mm3 (4.30-5.90); White Blood Cell Count 14.32 K/mm3 (4.00-11.30)
[2021-02-06 16:06] LABS: Albumin/Globulin Ratio 0.7 (0.8-1.8); Bilirubin, Total 0.3 mg/dL (0.1-1.0); Bun/Creatinine Ratio 24.4 (12.0-20.0); Calcium, Blood 8.9 mg/dL (8.5-10.1); Creatinine, Blood 1.64 mg/dL (0.60-1.20); Globulin, Blood 4.6 g/dL (2.2-4.0); Potassium, Blood 4.7 mmol/L (3.5-5.5); Total Protein, Blood 7.6 g/dL (6.4-8.2)
== END 2021-02-06 16:50 | disposition home or self-care (01) ==
LOC: ER 13:32
PROVIDERS: Physician Assistant
DX: N17.9 Acute kidney failure, unspecified (principal); I10 Essential (primary) hypertension; G47.30 Sleep apnea, unspecified; E11.9 Type 2 diabetes mellitus without complications; E03.9 Hypothyroidism, unspecified; F03.90 Unspecified dementia, unspecified severity, without behavioral disturbance, psychotic disturbance, mood disturbance, and anxiety; Z88.8 Allergy status to other drugs, medicaments and biological substances; Z91.048 Other nonmedicinal substance allergy status; Z88.1 Allergy status to other antibiotic agents; Z79.84 Long term (current) use of oral hypoglycemic drugs; Z79.899 Other long term (current) drug therapy
CPT/HCPCS: 36415; 80053; 83036; 85027; 99283

== ENCOUNTER → 2021-02-16 | Outpatient (CLI) | payer MEDICARE, OTHER ==
[~2021-02-16] MED LIST changes: +ATOR10 PO; +ATOR40TA PO; +BICALUTAMIDE50 M1; +BUME1 PO; +BUME2; -CARBIDOPA-LEVO1 EA17 PO; +CEPH500 PO; +CEPHALEXIN500 M1 PO; +CLOP75; +DONE5; +DOXY100 PO; +LANTUS SOL100 UNIT/1; +MELA3; +SPIR25; +Sinemet 25-1001 EACH PO; +Vitamin D2000 UNIT
== END ==
LOC: EDSTATUS 14:17 → LAB UVN 17:20
DX: E11.9 Type 2 diabetes mellitus without complications (principal); N17.8 Other acute kidney failure; Z79.84 Long term (current) use of oral hypoglycemic drugs; Z88.1 Allergy status to other antibiotic agents; Z88.8 Allergy status to other drugs, medicaments and biological substances; Z91.048 Other nonmedicinal substance allergy status
CPT/HCPCS: 83036; 85018

== ENCOUNTER 2021-02-28 09:01 | Emergency (ER) | payer MEDICARE, OTHER ==
[~2021-02-28] VITALS: Ht 182.9 cm; Wt 151.9 kg
[~2021-02-28 09:01] MED LIST changes: -ATOR10 PO; -ATOR40TA PO; -BICALUTAMIDE50 M1; -BUME1 PO; -BUME2; +CARBIDOPA-LEVO1 EA17 PO; -CEPH500 PO; -CEPHALEXIN500 M1 PO; -CLOP75; -DONE5; -DOXY100 PO; -LANTUS SOL100 UNIT/1; -MELA3; -SPIR25; -Sinemet 25-1001 EACH PO; -Vitamin D2000 UNIT
[2021-02-28 10:23] LABS: BASOPHILS ABSOLUTE AUTO 0.05 K/mm3 (0.00-0.23); BASOPHILS PERCENT AUTO 0 % (0-2); EOSINOPHILS ABSOLUTE AUTO 0.41 K/mm3 (0.00-0.68); EOSINOPHILS PERCENT AUTO 3 % (0-6); Hematocrit 33.7 % (37.0-53.0); Hemoglobin 11.3 g/dL (13.5-17.5); IMMATURE GRAN ABSOLUTE AUTO 0.06 K/mm3 (0.00-0.10); IMMATURE GRAN PERCENT AUTO 0 % (0-1); LYMPHOCYTES ABSOLUTE AUTO 3.13 K/mm3 (0.84-5.20); LYMPHOCYTES PERCENT AUTO 22 % (21-46); MONOCYTES ABSOLUTE AUTO 1.14 K/mm3 (0.16-1.47); MONOCYTES PERCENT AUTO 8 % (4-13); Mean Corpuscular HGB Conc 33.5 g/dL (31.5-36.5); Mean Corpuscular Volume 89 fL (80-100); Mean Platelet Volume 11.5 fL (9.1-12.4); NEUTROPHILS ABSOLUTE AUTO 9.31 K/mm3 (1.96-9.15); NEUTROPHILS PERCENT AUTO 66 % (41-73); Platelet Count 317 K/mm3 (150-400); RDW Coefficient Variation 12.6 % (11.7-14.2); RDW Standard Deviation 41.4 fL (35.1-46.3); Red Blood Cell Count 3.77 M/mm3 (4.30-5.90)
[2021-02-28 10:37] LABS: C-REACTIVE PROTEIN, EXT RANGE 3.88 mg/dL (0.000-0.300)
[2021-02-28 10:46] LABS: Bun/Creatinine Ratio 36.4 (12.0-20.0); Calcium, Blood 9.4 mg/dL (8.5-10.1); Creatinine, Blood 1.54 mg/dL (0.60-1.20); Potassium, Blood 4.2 mmol/L (3.5-5.5)
[2021-02-28] MEDS ORDERED: CEPH500 PO (11:58)
== END 2021-02-28 13:19 | disposition home or self-care (01) ==
LOC: ER 09:01
PROVIDERS: Emergency Medicine
DX: T83.098A Other mechanical complication of other urinary catheter, initial encounter (principal); L03.116 Cellulitis of left lower limb; L03.115 Cellulitis of right lower limb; I89.0 Lymphedema, not elsewhere classified; I87.8 Other specified disorders of veins; I10 Essential (primary) hypertension; E11.9 Type 2 diabetes mellitus without complications; E03.9 Hypothyroidism, unspecified; G47.30 Sleep apnea, unspecified; E66.01 Morbid (severe) obesity due to excess calories; F03.90 Unspecified dementia, unspecified severity, without behavioral disturbance, psychotic disturbance, mood disturbance, and anxiety; Z88.8 Allergy status to other drugs, medicaments and biological substances; Z91.048 Other nonmedicinal substance allergy status; Z88.1 Allergy status to other antibiotic agents; Z79.899 Other long term (current) drug therapy
CPT/HCPCS: 36415; 80048; 84145; 85025; 86140; 99284; A9270

== ENCOUNTER 2021-03-30 21:04 | Emergency (ER) | payer MEDICARE, OTHER ==
[~2021-03-30] VITALS: Ht 177.8 cm; Wt 136.1 kg
[~2021-03-30 21:04] MED LIST changes: +CEPH500 PO
[2021-03-30] MEDS ORDERED: SPIR25 (21:43)
[2021-03-30] MEDS ORDERED: DONE5 (21:44)
[2021-03-30] MEDS ORDERED: BICALUTAMIDE50 M1 (21:44)
[2021-03-30] MEDS ORDERED: BUME2 (21:44)
[2021-03-30] MEDS ORDERED: CLOP75 (21:44)
[2021-03-30] MEDS ORDERED: MELA3 (21:46)
[2021-03-30] MEDS ORDERED: LANTUS SOL100 UNIT/1 (21:46)
[2021-03-30] MEDS ORDERED: Vitamin D2000 UNIT (21:47)
[2021-03-30 21:59] LABS: BASOPHILS ABSOLUTE AUTO 0.08 K/mm3 (0.00-0.23); BASOPHILS PERCENT AUTO 1 % (0-2); EOSINOPHILS ABSOLUTE AUTO 0.39 K/mm3 (0.00-0.68); EOSINOPHILS PERCENT AUTO 3 % (0-6); Hematocrit 31.1 % (37.0-53.0); Hemoglobin 10.3 g/dL (13.5-17.5); IMMATURE GRAN ABSOLUTE AUTO 0.08 K/mm3 (0.00-0.10); IMMATURE GRAN PERCENT AUTO 1 % (0-1); LYMPHOCYTES ABSOLUTE AUTO 3.97 K/mm3 (0.84-5.20); LYMPHOCYTES PERCENT AUTO 26 % (21-46); MONOCYTES ABSOLUTE AUTO 1.57 K/mm3 (0.16-1.47); MONOCYTES PERCENT AUTO 10 % (4-13); Mean Corpuscular HGB Conc 33.1 g/dL (31.5-36.5); Mean Corpuscular Volume 91 fL (80-100); Mean Platelet Volume 11.5 fL (9.1-12.4); NEUTROPHILS ABSOLUTE AUTO 9.35 K/mm3 (1.96-9.15); NEUTROPHILS PERCENT AUTO 61 % (41-73); Platelet Count 361 K/mm3 (150-400); RDW Coefficient Variation 12.8 % (11.7-14.2); RDW Standard Deviation 41.7 fL (35.1-46.3); Red Blood Cell Count 3.43 M/mm3 (4.30-5.90); White Blood Cell Count 15.44 K/mm3 (4.00-11.30)
[2021-03-30 22:26] LABS: Albumin, Blood 2.6 g/dL (3.4-5.0); Albumin/Globulin Ratio 0.5 (0.8-1.8); Bilirubin, Total 0.3 mg/dL (0.1-1.0); Creatinine, Blood 1.41 mg/dL (0.60-1.20); Total Protein, Blood 7.6 g/dL (6.4-8.2)
[2021-03-30 22:28] LABS: Source, Urine Catheter
[2021-03-30 22:32] LABS: Appearance, Urine Hazy (Clear); Bilirubin, Urine Neg (Neg); Blood, Urine 2+ (Neg); Color, Urine Yellow (P-Yellow); Glucose Qualitative, Urine 4+ (Neg); Ketones, Urine Neg (Neg); Leukocyte Esterase, Urine 3+ (Neg); Nitrite, Urine Neg (Neg); Protein, Urine 1+ (Neg); Urobilinogen, Urine NORM (Normal)
[2021-03-30 22:45] LABS: White Blood Cells, Urine 50-100 /hpf (0-5)
[2021-03-30 22:46] LABS: Bacteria Mod /hpf; Hyaline Casts 0-2 /lpf (0-2); Red Blood Cells, Urine 0-2 /hpf (0-2); Squamous Epithelial Cells Not Seen /hpf (Few)
[2021-03-30 22:52] LABS: Bun/Creatinine Ratio 31.2 (12.0-20.0)
[2021-03-31] MEDS ORDERED: CEPHALEXIN500 M1 PO (00:12)
== END 2021-03-31 01:38 | disposition home or self-care (01) ==
LOC: ER 21:04
PROVIDERS: Emergency Medicine
DX: E11.65 Type 2 diabetes mellitus with hyperglycemia (principal); N39.0 Urinary tract infection, site not specified; Z79.899 Other long term (current) drug therapy; Z79.4 Long term (current) use of insulin; Z91.048 Other nonmedicinal substance allergy status; I10 Essential (primary) hypertension; E66.01 Morbid (severe) obesity due to excess calories; E11.9 Type 2 diabetes mellitus without complications; E03.9 Hypothyroidism, unspecified; F03.90 Unspecified dementia, unspecified severity, without behavioral disturbance, psychotic disturbance, mood disturbance, and anxiety
CPT/HCPCS: 71045; 80053; 81001; 82947; 85025; 87077; 87086; 87186; 93005; 93010; 96365; 99285-25; A9270; J0696; J1815; J7030

== ENCOUNTER 2021-04-02 22:02 | Emergency (ER) | payer MEDICARE, OTHER ==
[~2021-04-02] VITALS: Ht 170.2 cm; Wt 156.5 kg
[~2021-04-02 22:02] MED LIST changes: +BICALUTAMIDE50 M1; +BUME2; +CEPHALEXIN500 M1 PO; +CLOP75; +DONE5; +LANTUS SOL100 UNIT/1; +MELA3; +SPIR25; +Vitamin D2000 UNIT
[2021-04-02] MEDS ORDERED: ATOR40TA (22:20)
[2021-04-02 22:24] LABS: BASOPHILS ABSOLUTE AUTO 0.06 K/mm3 (0.00-0.23); BASOPHILS PERCENT AUTO 0 % (0-2); EOSINOPHILS ABSOLUTE AUTO 0.25 K/mm3 (0.00-0.68); EOSINOPHILS PERCENT AUTO 2 % (0-6); Hematocrit 34.6 % (37.0-53.0); Hemoglobin 11.1 g/dL (13.5-17.5); IMMATURE GRAN ABSOLUTE AUTO 0.08 K/mm3 (0.00-0.10); IMMATURE GRAN PERCENT AUTO 1 % (0-1); LYMPHOCYTES ABSOLUTE AUTO 3.83 K/mm3 (0.84-5.20); LYMPHOCYTES PERCENT AUTO 26 % (21-46); MONOCYTES ABSOLUTE AUTO 1.39 K/mm3 (0.16-1.47); MONOCYTES PERCENT AUTO 9 % (4-13); Mean Corpuscular HGB 29.1 pg (26.0-34.0); Mean Corpuscular HGB Conc 32.1 g/dL (31.5-36.5); Mean Corpuscular Volume 91 fL (80-100); Mean Platelet Volume 11.1 fL (9.1-12.4); NEUTROPHILS PERCENT AUTO 62 % (41-73); Platelet Count 380 K/mm3 (150-400); RDW Coefficient Variation 12.7 % (11.7-14.2); Red Blood Cell Count 3.81 M/mm3 (4.30-5.90); White Blood Cell Count 14.81 K/mm3 (4.00-11.30)
[2021-04-02 22:45] LABS: Alanine Aminotransfer (ALT/SGP 21 U/L (12-78); Albumin, Blood 2.6 g/dL (3.4-5.0); Albumin/Globulin Ratio 0.5 (0.8-1.8); Alk Phos 83 U/L (50-136); Anion Gap 6 mmol/L (6-16); Aspartate Aminotrans (AST/SGOT 11 U/L (12-37); Bilirubin, Total 0.3 mg/dL (0.1-1.0); Blood Urea Nitrogen 43 mg/dL (8-24); Bun/Creatinine Ratio 30.9 (12.0-20.0); CO2, Blood 32 mmol/L (21-32); Calcium, Blood 9.5 mg/dL (8.5-10.1); Chloride, Blood 91 mmol/L (98-108); Creatinine, Blood 1.39 mg/dL (0.60-1.20); Globulin, Blood 5.5 g/dL (2.2-4.0); Glomerular Filtration Rate 49 (60-); Glucose, Blood 486 mg/dL (70-99); Potassium, Blood 4.2 mmol/L (3.5-5.5); Sodium, Blood 129 mmol/L (136-145); Total Protein, Blood 8.1 g/dL (6.4-8.2)
[2021-04-02] MEDS ORDERED: DOXY100 PO (23:41)
== END 2021-04-03 02:49 | disposition home or self-care (01) ==
LOC: ER 22:02
PROVIDERS: Student in an Organized Health Care Education/Training Program
DX: E11.65 Type 2 diabetes mellitus with hyperglycemia (principal); I87.2 Venous insufficiency (chronic) (peripheral); E11.622 Type 2 diabetes mellitus with other skin ulcer; L97.229 Non-pressure chronic ulcer of left calf with unspecified severity; L97.219 Non-pressure chronic ulcer of right calf with unspecified severity; L03.90 Cellulitis, unspecified; I11.0 Hypertensive heart disease with heart failure; I50.9 Heart failure, unspecified; I48.91 Unspecified atrial fibrillation; E03.9 Hypothyroidism, unspecified; G47.33 Obstructive sleep apnea (adult) (pediatric); Z91.048 Other nonmedicinal substance allergy status; Z79.899 Other long term (current) drug therapy; Z79.4 Long term (current) use of insulin
CPT/HCPCS: 80053; 82947; 85025; 99283; A9270; J1815

== ENCOUNTER 2021-04-09 22:00 | Inpatient (IN) | payer MEDICARE, OTHER ==
[~2021-04-09] VITALS: Ht 175.3 cm; Wt 144.6 kg
[~2021-04-09 22:00] MED LIST changes: +ATOR40TA PO; -CARBIDOPA-LEVO1 EA17 PO; +DOXY100 PO; +Sinemet 25-1001 EACH PO
[2021-04-09] MEDS ORDERED: SPIR25 PO (22:31)
[2021-04-09 22:32] LABS: BASOPHILS ABSOLUTE AUTO 0.07 K/mm3 (0.00-0.23); BASOPHILS PERCENT AUTO 0 % (0-2); EOSINOPHILS ABSOLUTE AUTO 0.31 K/mm3 (0.00-0.68); EOSINOPHILS PERCENT AUTO 2 % (0-6); Hematocrit 31.7 % (37.0-53.0); Hemoglobin 10.4 g/dL (13.5-17.5); IMMATURE GRAN PERCENT AUTO 1 % (0-1); LYMPHOCYTES ABSOLUTE AUTO 3.27 K/mm3 (0.84-5.20); LYMPHOCYTES PERCENT AUTO 21 % (21-46); MONOCYTES ABSOLUTE AUTO 1.42 K/mm3 (0.16-1.47); MONOCYTES PERCENT AUTO 9 % (4-13); Mean Corpuscular HGB 29.4 pg (26.0-34.0); Mean Corpuscular HGB Conc 32.8 g/dL (31.5-36.5); Mean Corpuscular Volume 90 fL (80-100); Mean Platelet Volume 11.1 fL (9.1-12.4); NEUTROPHILS ABSOLUTE AUTO 10.72 K/mm3 (1.96-9.15); NEUTROPHILS PERCENT AUTO 68 % (41-73); Platelet Count 395 K/mm3 (150-400); RDW Coefficient Variation 12.6 % (11.7-14.2); RDW Standard Deviation 41.4 fL (35.1-46.3); Red Blood Cell Count 3.54 M/mm3 (4.30-5.90); White Blood Cell Count 15.89 K/mm3 (4.00-11.30)
[2021-04-09] MEDS ORDERED: POTA8 PO (22:32)
[2021-04-09 22:48] LABS: Magnesium, Blood 1.9 mg/dL (1.6-2.4); Troponin I <0.015 ng/mL (0.000-0.040)
[2021-04-09 22:56] LABS: Alanine Aminotransfer (ALT/SGP 19 U/L (12-78); Albumin, Blood 2.3 g/dL (3.4-5.0); Albumin/Globulin Ratio 0.4 (0.8-1.8); Alk Phos 88 U/L (50-136); Anion Gap 7 mmol/L (6-16); Aspartate Aminotrans (AST/SGOT 27 U/L (12-37); Bilirubin, Total 0.3 mg/dL (0.1-1.0); Blood Urea Nitrogen 40 mg/dL (8-24); Bun/Creatinine Ratio 31.5 (12.0-20.0); CO2, Blood 31 mmol/L (21-32); Chloride, Blood 95 mmol/L (98-108); Creatinine, Blood 1.27 mg/dL (0.60-1.20); Globulin, Blood 5.4 g/dL (2.2-4.0); Glomerular Filtration Rate 55 (60-); Glucose, Blood 401 mg/dL (70-99); Potassium, Blood 3.7 mmol/L (3.5-5.5); Sodium, Blood 133 mmol/L (136-145); Total Protein, Blood 7.7 g/dL (6.4-8.2)
[2021-04-09 23:27] LABS: Source, Urine Catheter
[2021-04-09 23:30] LABS: Bilirubin, Urine Neg (Neg); Blood, Urine 3+ (Neg); Glucose Qualitative, Urine 4+ (Neg); Ketones, Urine Neg (Neg); Leukocyte Esterase, Urine 3+ (Neg); Nitrite, Urine Neg (Neg); Protein, Urine 1+ (Neg); Urobilinogen, Urine NORM (Normal)
[2021-04-09 23:44] LABS: Appearance, Urine Hazy (Clear); Color, Urine Pale Yellow (P-Yellow)
[2021-04-09 23:45] LABS: Amorphous Light (0-Heavy); Bacteria Few /hpf; Squamous Epithelial Cells Not Seen /hpf (Few); White Blood Cells, Urine 50-100 /hpf (0-5)
--- NOTE | 2021-04-10 03:21 | NUR ---
transfer report from Denisse SURGICAL AIDE on Morbidly Obese PT with VRE Sepsis dementia from facility [facility]. Chronic burciaga cath changed in ER & C & S pending. Will be put in lift room to aide in bed mobility, & will be in contact isolation for VRE recent 03/30/2021. REcent hx of Strep B , Staph Aur, & Staph intermed in wounds. Diabetic with BG 495 per EMS. Await admission, PT full code status.
--- NOTE | 2021-04-10 06:28 | NUR ---
81 year old MAle with diabetes with glucose over 400 in ER , uti with chronic burciaga changed in ER, Baseline MIK oxygen, CPAP, morbid obesity, VRE, chronic wounds bilat le. In isolation & lift room. CO bilat upper arm pain dopple US to bilat upper extrem ordered. On abx to tx UTI.
[2021-04-10 07:15] LABS: BASOPHILS ABSOLUTE AUTO 0.06 K/mm3 (0.00-0.23); BASOPHILS PERCENT AUTO 0 % (0-2); EOSINOPHILS ABSOLUTE AUTO 0.39 K/mm3 (0.00-0.68); EOSINOPHILS PERCENT AUTO 3 % (0-6); Hematocrit 30.2 % (37.0-53.0); Hemoglobin 9.9 g/dL (13.5-17.5); IMMATURE GRAN ABSOLUTE AUTO 0.09 K/mm3 (0.00-0.10); IMMATURE GRAN PERCENT AUTO 1 % (0-1); LYMPHOCYTES ABSOLUTE AUTO 2.83 K/mm3 (0.84-5.20); LYMPHOCYTES PERCENT AUTO 20 % (21-46); MONOCYTES ABSOLUTE AUTO 1.42 K/mm3 (0.16-1.47); MONOCYTES PERCENT AUTO 10 % (4-13); Mean Corpuscular HGB 29.5 pg (26.0-34.0); Mean Corpuscular HGB Conc 32.8 g/dL (31.5-36.5); Mean Corpuscular Volume 90 fL (80-100); Mean Platelet Volume 11.1 fL (9.1-12.4); NEUTROPHILS ABSOLUTE AUTO 9.28 K/mm3 (1.96-9.15); NEUTROPHILS PERCENT AUTO 66 % (41-73); Platelet Count 378 K/mm3 (150-400); RDW Coefficient Variation 12.7 % (11.7-14.2); RDW Standard Deviation 41.6 fL (35.1-46.3); Red Blood Cell Count 3.36 M/mm3 (4.30-5.90); White Blood Cell Count 14.07 K/mm3 (4.00-11.30)
[2021-04-10 07:30] LABS: Bun/Creatinine Ratio 32.3 (12.0-20.0); Calcium, Blood 8.9 mg/dL (8.5-10.1); Creatinine, Blood 1.24 mg/dL (0.60-1.20); Potassium, Blood 3.4 mmol/L (3.5-5.5)
--- NOTE | 2021-04-10 19:38 | NUR ---
Alert and oriented x2 ,able to make needs known. Denies any shortness of breath , headache , dizziness , or chest pain. Tapai cath is patent , draining clear yellow urine. Continue on ABO therapy for UTI, no adverse effects noted. Tele monitor dc and no access. ABO IV changed to PO. Confused and restless in the morning but has improved by the end of the shift. Insulin coverage was given . Bed alarm on and call light within reach.
--- NOTE | 2021-04-10 23:18 | NUR ---
PT with baseline dementia, removed several IV saline locks on day shift, no IV access order. PT refused blood glucose check had to be reapproached several times to allow. BG 316. Obese PT confused high fall risk. PT disrobed & scratched both LE with bleeding wounds cleansed & bandaids applied. Photodoc coccxy & bilat le wounds & wound care provided. Up with 2 max to stand at bedside fww gaitbelt. Very weak unsteady obesity & pain limits mobility. Large chunks of scaling dry skin present . Diabetic PT who's blood glucose was nearly 500 on EMS check when brought in from [facility]. Dana RN says PT has DTR Tiny who can be reached at [phone].PT has lymphedema bilat le Bilat UE & swelling causes increased pain. Medicated with tylenol 650 mg with helpful effect.
--- NOTE | 2021-04-11 02:23 | NUR ---
DR Ernandez called about unrelieved bilat UE pain & PT says he take 1 10/325 mg tab for acute pain, MD rx 1 to 2 tabs PO q 6 hours severe pain. Bilat UE elevated on pillows. Bed alarm on , PT has order for QID insulin BG AC HS did not cross in care plan. PT edentulous changed renal diet to renal ADA mech soft group meat.PT will need help with feeding PT & OT eval. Chronic burciaga cath changed in ER urine cloudy sed.
--- NOTE | 2021-04-11 04:52 | NUR ---
PT apperas more comfortable on 2 norco 5/325 mg tabs with bilat UE elevated to decrease edema. PT drant supplement renal carb control with assist. no fever. Bilat le wounds photodoc & wound care . Sacral mepilex applied to stage 1 sacral dcub. fall precautions.
[2021-04-11 06:03] LABS: BASOPHILS ABSOLUTE AUTO 0.05 K/mm3 (0.00-0.23); BASOPHILS PERCENT AUTO 0 % (0-2); EOSINOPHILS ABSOLUTE AUTO 0.34 K/mm3 (0.00-0.68); EOSINOPHILS PERCENT AUTO 3 % (0-6); Hematocrit 30.1 % (37.0-53.0); Hemoglobin 9.8 g/dL (13.5-17.5); IMMATURE GRAN ABSOLUTE AUTO 0.07 K/mm3 (0.00-0.10); IMMATURE GRAN PERCENT AUTO 1 % (0-1); LYMPHOCYTES PERCENT AUTO 25 % (21-46); MONOCYTES ABSOLUTE AUTO 1.61 K/mm3 (0.16-1.47); MONOCYTES PERCENT AUTO 12 % (4-13); Mean Corpuscular HGB 29.6 pg (26.0-34.0); Mean Corpuscular HGB Conc 32.6 g/dL (31.5-36.5); Mean Corpuscular Volume 91 fL (80-100); Mean Platelet Volume 11.3 fL (9.1-12.4); NEUTROPHILS ABSOLUTE AUTO 7.96 K/mm3 (1.96-9.15); NEUTROPHILS PERCENT AUTO 59 % (41-73); Platelet Count 355 K/mm3 (150-400); RDW Coefficient Variation 12.7 % (11.7-14.2); RDW Standard Deviation 42.4 fL (35.1-46.3); Red Blood Cell Count 3.31 M/mm3 (4.30-5.90); White Blood Cell Count 13.43 K/mm3 (4.00-11.30)
[2021-04-11 06:45] LABS: Bun/Creatinine Ratio 27.6 (12.0-20.0); Calcium, Blood 8.6 mg/dL (8.5-10.1); Creatinine, Blood 1.34 mg/dL (0.60-1.20); Potassium, Blood 3.4 mmol/L (3.5-5.5)
--- NOTE | 2021-04-11 19:48 | NUR ---
Alert and oriented x 2 with restlessness sometimes. C/O bilateral lower extremities pain, norco 2 tabs po was given and it was effective. Continue on IV ABO therapy for UTI. Insulin was given for blood sugar, no adverse effects noted. Bed in low position and bed alarm on . Bilateral LE DRESSING CDI. Continue to monitor.
--- NOTE | 2021-04-12 05:24 | NUR ---
PATIENT IS ALERT AND ORIENTED X2. PATIENT WAS RESTLESS AND AGITATED AND CONSTANTLY TRIED TO GET OUT BED AND CHAIR. PATIENT WAS PUT IN A RESTRAIN VEST AND 4 SIDE RAILS UP.
--- NOTE | 2021-04-12 19:14 | NUR ---
Alert and oriented x2-3 . Continue to restrainst for attempted to get out of bed,fall risk and unable to follow direction. vital signs are stable. Blood culture is negative. Continue on IV ABO for UTI. Insulin was given for blood glucose coverage per SS. Bed alarm on and call light within reach.Bilateral lower extremities dressing CDI.Continue to monitor.
--- NOTE | 2021-04-13 04:01 | NUR ---
PATIENT WAS ALERT AND ORIENTED X3, PATIENT WAS VERBALLY AGGRESIVE AND REQUESTED TO BE REMOVED FROM RESTRAIN VEST. 1 UNIT OF INSULIN AND 20UNITS OF LANTUS WERE GIVEN. PATIENT AGREED TO SLEEP IN BED AT 3AM, PATIENT WAS THEN PUT IN BED VIA PRIYA LIFT. PT VITAL WERE WNL, PT IS ON ROOM AIR
[2021-04-13 05:30] LABS: BASOPHILS ABSOLUTE AUTO 0.08 K/mm3 (0.00-0.23); BASOPHILS PERCENT AUTO 1 % (0-2); EOSINOPHILS ABSOLUTE AUTO 0.34 K/mm3 (0.00-0.68); EOSINOPHILS PERCENT AUTO 2 % (0-6); Hemoglobin 10.3 g/dL (13.5-17.5); IMMATURE GRAN ABSOLUTE AUTO 0.13 K/mm3 (0.00-0.10); IMMATURE GRAN PERCENT AUTO 1 % (0-1); LYMPHOCYTES ABSOLUTE AUTO 3.45 K/mm3 (0.84-5.20); LYMPHOCYTES PERCENT AUTO 22 % (21-46); MONOCYTES ABSOLUTE AUTO 1.83 K/mm3 (0.16-1.47); MONOCYTES PERCENT AUTO 12 % (4-13); Mean Corpuscular HGB 29.4 pg (26.0-34.0); Mean Corpuscular HGB Conc 32.2 g/dL (31.5-36.5); Mean Corpuscular Volume 91 fL (80-100); Mean Platelet Volume 11.4 fL (9.1-12.4); NEUTROPHILS ABSOLUTE AUTO 9.61 K/mm3 (1.96-9.15); NEUTROPHILS PERCENT AUTO 62 % (41-73); Platelet Count 396 K/mm3 (150-400); RDW Coefficient Variation 12.7 % (11.7-14.2); RDW Standard Deviation 42.3 fL (35.1-46.3); White Blood Cell Count 15.44 K/mm3 (4.00-11.30)
[2021-04-13 06:02] LABS: Bun/Creatinine Ratio 24.6 (12.0-20.0); Creatinine, Blood 1.38 mg/dL (0.60-1.20); Potassium, Blood 3.8 mmol/L (3.5-5.5)
--- NOTE | 2021-04-13 17:30 | NUR ---
ASSUMED CARE: PT TRANSFERRED FROM ROOM 325. REPORT RECIEVED FROM FARIBA SWANSON. PT IN JAMES VEST. BED ALARM ON AND CAMERA IN PLACE. DENIES NEEDS
--- NOTE | 2021-04-13 17:35 | NUR ---
TRANSFER PATIENT TRANSFERRED TO ROOM 350. JAMES VEST IN PLACE. PATIENT MOVED VIA BED. JO PATENT AND DRAINING. IV PATENT AND SALINE LOCKED. BELONGINGS SENT WITH PATIENT. REPORT GIVEN TO SKY JAY.
--- NOTE | 2021-04-14 05:57 | NUR ---
PATIENT IS ALERT AND ORIENTED TO SELF ONLY. PATIENT WAS DISAGREEABLE BUT TOOK ALL MEDICATIONS WITHOUT ANY ISSUE. PATIENT IS IN JAMES VEST DUE TO ATTEMPTING TO CLIMB OUT OF BED. PATIENT STILL CONINUES TO BE IMPUSIVE.
--- NOTE | 2021-04-14 15:27 | NUR ---
PT HAS A NEW OPEN SORE ON THE BACK OF HIS RIGHT ANKLE. MEPELEX PLACED OVER TO KEEP DRY AND PREVENT RUBBING AGAISMT OTHER ANKLE. OTHER SMALL WOULDS NOTED ON PTS LEGS, BUT ARE CLOSED AND HEALING.
--- NOTE | 2021-04-14 18:39 | NUR ---
SHIFT SUMMARY PT WAS ABLE TO GET INTO THE RECLINER TODAY AND SPENT SOME TIME SITTING UP WITH HIS LEGS PROPPED UP. HE STILL HAS SEVERE +3 EDEMA IN ALL EXTREMETIES. BED BATH COMPLETED AND A NEW SORE ON HIS RIGHT ANKLE WAS COVERED IN A MEPELEX. HE HAS BEEN COMPLIANT WITH CARE AND COOPERATIVE SO RETRAINTS WERE REMOVED. WILL CONTINUTE TO MONITOR.
--- NOTE | 2021-04-15 04:49 | NUR ---
Patient was argumentive with nursing staff over what he could and couldn't do physically. He is still very much unaware of his limitations. His lower extremities have 3+ pitting edema as well as his hands. Patients hs blood sugar was 263.
[2021-04-15 12:56] LABS: Influenza A, PCR NEGATIVE (NEGATIVE); Influenza B, PCR NEGATIVE (NEGATIVE); Resp Syncytial Virus, PCR NEGATIVE (NEGATIVE); SARS-Cov-2 (COVID-19) PCR, MMC NEGATIVE (NEGATIVE)
[2021-04-15] MEDS ORDERED: ATOR10 PO (13:06)
[2021-04-15] MEDS ORDERED: BUME1 PO (13:07)
--- NOTE | 2021-04-15 15:17 | NUR ---
DISCHARGE SUMMARY PATIENT DISCHARGED TO HOME AT [facility]. PATIENT ALERT AND ORIENTED THIS SHIFT. PATIENT IS SLOW TO RESPOND AT TIMES. PATIENT PAINFUL TO TOUCH, MEDICATED PER EMAR. PATIENT UP TO CHAIR WITH PT THIS AM. REMAINED IN CHAIR THROUGHOUT THIS SHIFT UNTIL DISCHARGE. PATIENT CALM AND COOPERATIVE WITH CARE. PATIENT DISCHARGED WITH CONTINUATION OF HOME HEALTH PLANNED. PATIENT TRANSPORTED HOME VIA WHEELCHAIR VAN. PATIENT TO WHEELCHAIR WITH ASSIST AND FWW.
== END 2021-04-15 14:33 | disposition home health service (06) | DRG 299 ==
LOC: ER 22:00 → MEDS 04-10 02:58 → ENPENDDIS 04-15 12:13 → MEDS 04-15 14:33
PROVIDERS: Emergency Medicine; Family Medicine; Internal Medicine; ADMIT Family Medicine
DX: I82.612 Acute embolism and thrombosis of superficial veins of left upper extremity (principal); A41.50 Gram-negative sepsis, unspecified; Z68.42 Body mass index [BMI] 45.0-49.9, adult; N18.30 Chronic kidney disease, stage 3 unspecified; E03.9 Hypothyroidism, unspecified; E11.22 Type 2 diabetes mellitus with diabetic chronic kidney disease; E66.9 Obesity, unspecified; G43.909 Migraine, unspecified, not intractable, without status migrainosus; Z20.822 Contact with and (suspected) exposure to COVID-19; F03.90 Unspecified dementia, unspecified severity, without behavioral disturbance, psychotic disturbance, mood disturbance, and anxiety; I12.9 Hypertensive chronic kidney disease with stage 1 through stage 4 chronic kidney disease, or unspecified chronic kidney disease; I87.8 Other specified disorders of veins; Z91.040 Latex allergy status; Z85.46 Personal history of malignant neoplasm of prostate; Z90.6 Acquired absence of other parts of urinary tract; Z98.890 Other specified postprocedural states; Z79.899 Other long term (current) drug therapy; Z79.02 Long term (current) use of antithrombotics/antiplatelets; Z79.4 Long term (current) use of insulin; E66.01 Morbid (severe) obesity due to excess calories
CPT/HCPCS: 0241U; 36415; 51702; 71045; 80048; 80053; 81001; 82947; 83605; 83735; 83880; 84484; 85025; 87040; 87086; 93005; 93010; 93970; 96365; 96375; 97110; 97116; 97162; 97166; 97530; 97530-CQ; 97535; 99285-25; A9270; J1644; J1815; J1940; J1956; J2543

== ENCOUNTER 2021-04-21 05:00 | Emergency (ER) | payer MEDICARE, OTHER ==
[~2021-04-21] VITALS: Ht 170.2 cm; Wt 139.7 kg
[~2021-04-21 05:00] MED LIST changes: +ATOR10 PO; +BUME1 PO
[2021-04-21] MEDS ORDERED: ACET325 PO (05:57)
[2021-04-21] MEDS ORDERED: TRAZ100 PO (05:57)
[2021-04-21] MEDS ORDERED: ATOR40TA PO (05:58)
[2021-04-21 06:07] LABS: BASOPHILS ABSOLUTE AUTO 0.07 K/mm3 (0.00-0.23); BASOPHILS PERCENT AUTO 1 % (0-2); EOSINOPHILS ABSOLUTE AUTO 0.21 K/mm3 (0.00-0.68); EOSINOPHILS PERCENT AUTO 1 % (0-6); Hemoglobin 9.5 g/dL (13.5-17.5); IMMATURE GRAN ABSOLUTE AUTO 0.07 K/mm3 (0.00-0.10); IMMATURE GRAN PERCENT AUTO 1 % (0-1); LYMPHOCYTES ABSOLUTE AUTO 3.07 K/mm3 (0.84-5.20); LYMPHOCYTES PERCENT AUTO 21 % (21-46); MONOCYTES ABSOLUTE AUTO 1.51 K/mm3 (0.16-1.47); MONOCYTES PERCENT AUTO 10 % (4-13); Mean Corpuscular HGB 28.5 pg (26.0-34.0); Mean Corpuscular HGB Conc 31.7 g/dL (31.5-36.5); Mean Corpuscular Volume 90 fL (80-100); Mean Platelet Volume 10.9 fL (9.1-12.4); NEUTROPHILS ABSOLUTE AUTO 9.85 K/mm3 (1.96-9.15); NEUTROPHILS PERCENT AUTO 67 % (41-73); Platelet Count 539 K/mm3 (150-400); RDW Coefficient Variation 12.8 % (11.7-14.2); RDW Standard Deviation 42.2 fL (35.1-46.3); Red Blood Cell Count 3.33 M/mm3 (4.30-5.90); White Blood Cell Count 14.78 K/mm3 (4.00-11.30)
[2021-04-21 06:35] LABS: Alanine Aminotransfer (ALT/SGP 78 U/L (12-78); Albumin, Blood 2.1 g/dL (3.4-5.0); Albumin/Globulin Ratio 0.4 (0.8-1.8); Alk Phos 122 U/L (50-136); Anion Gap 8 mmol/L (6-16); Aspartate Aminotrans (AST/SGOT 57 U/L (12-37); Bilirubin, Total 0.5 mg/dL (0.1-1.0); Blood Urea Nitrogen 36 mg/dL (8-24); Bun/Creatinine Ratio 32.7 (12.0-20.0); CO2, Blood 29 mmol/L (21-32); Calcium, Blood 8.8 mg/dL (8.5-10.1); Chloride, Blood 103 mmol/L (98-108); Globulin, Blood 4.7 g/dL (2.2-4.0); Glomerular Filtration Rate >60 (60-); Glucose, Blood 190 mg/dL (70-99); Potassium, Blood 3.7 mmol/L (3.5-5.5); Sodium, Blood 140 mmol/L (136-145); Total Protein, Blood 6.8 g/dL (6.4-8.2)
[2021-04-21] MEDS ORDERED: Mupirocin22 GM TOP (07:25)
[2021-04-21] MEDS ORDERED: Cipro500 MG PO (19:47)
== END 2021-04-21 09:01 | disposition home or self-care (01) ==
LOC: ER 05:00
PROVIDERS: Student in an Organized Health Care Education/Training Program
DX: R60.0 Localized edema (principal); I11.0 Hypertensive heart disease with heart failure; I50.9 Heart failure, unspecified; E11.9 Type 2 diabetes mellitus without complications; I48.91 Unspecified atrial fibrillation; Z91.048 Other nonmedicinal substance allergy status; Z79.4 Long term (current) use of insulin; Z79.899 Other long term (current) drug therapy
CPT/HCPCS: 36415; 80053; 85025; 93005; 93010; 96374; 99283-25; J1940

== ENCOUNTER 2021-05-02 13:42 | Emergency (ER) | payer MEDICARE, OTHER ==
[~2021-05-02] VITALS: Ht 175.3 cm; Wt 124.7 kg
[~2021-05-02 13:42] MED LIST changes: +ACET325 PO; +Cipro500 MG PO; +Mupirocin22 GM TOP; +TRAZ100 PO
[2021-05-02 14:22] LABS: BASOPHILS ABSOLUTE AUTO 0.06 K/mm3 (0.00-0.23); BASOPHILS PERCENT AUTO 0 % (0-2); EOSINOPHILS ABSOLUTE AUTO 0.33 K/mm3 (0.00-0.68); EOSINOPHILS PERCENT AUTO 2 % (0-6); Hematocrit 35.3 % (37.0-53.0); Hemoglobin 11.4 g/dL (13.5-17.5); IMMATURE GRAN ABSOLUTE AUTO 0.19 K/mm3 (0.00-0.10); IMMATURE GRAN PERCENT AUTO 1 % (0-1); LYMPHOCYTES PERCENT AUTO 19 % (21-46); MONOCYTES PERCENT AUTO 7 % (4-13); Mean Corpuscular HGB 28.7 pg (26.0-34.0); Mean Corpuscular HGB Conc 32.3 g/dL (31.5-36.5); Mean Corpuscular Volume 89 fL (80-100); Mean Platelet Volume 11.3 fL (9.1-12.4); NEUTROPHILS PERCENT AUTO 71 % (41-73); Platelet Count 483 K/mm3 (150-400); RDW Standard Deviation 42.3 fL (35.1-46.3); Red Blood Cell Count 3.97 M/mm3 (4.30-5.90); White Blood Cell Count 16.68 K/mm3 (4.00-11.30)
[2021-05-02 15:10] LABS: Albumin, Blood 2.2 g/dL (3.4-5.0); Albumin/Globulin Ratio 0.4 (0.8-1.8); Bilirubin, Total 0.3 mg/dL (0.1-1.0); Bun/Creatinine Ratio 39.7 (12.0-20.0); Calcium, Blood 9.4 mg/dL (8.5-10.1); Creatinine, Blood 1.36 mg/dL (0.60-1.20); Globulin, Blood 6.1 g/dL (2.2-4.0); Potassium, Blood 4.1 mmol/L (3.5-5.5); Total Protein, Blood 8.3 g/dL (6.4-8.2)
[2021-05-02] MEDS ORDERED: CEFD300 PO (18:09)
== END 2021-05-02 19:15 | disposition home or self-care (01) ==
LOC: ER 13:42
PROVIDERS: Physician Assistant
DX: L03.116 Cellulitis of left lower limb (principal); L03.115 Cellulitis of right lower limb; E11.9 Type 2 diabetes mellitus without complications; I48.91 Unspecified atrial fibrillation; I11.0 Hypertensive heart disease with heart failure; I50.9 Heart failure, unspecified; Z79.899 Other long term (current) drug therapy; Z79.4 Long term (current) use of insulin
CPT/HCPCS: 36415; 80053; 85025; 93005; 93010; 96374; 99284-25; J0696

== ENCOUNTER 2021-05-22 18:21 | Inpatient (IN) | payer MEDICARE, OTHER ==
[~2021-05-22] VITALS: Ht 188 cm; Wt 133.0 kg
[~2021-05-22 18:21] MED LIST changes: +CEFD300 PO; +CHLO25B PO; +Norco 5-325 Ta1 EACH PO
[2021-05-22 18:59] LABS: Hematocrit 37.2 % (37.0-53.0); Hemoglobin 12.2 g/dL (13.5-17.5); Mean Corpuscular HGB 28.5 pg (26.0-34.0); Mean Corpuscular HGB Conc 32.8 g/dL (31.5-36.5); Mean Corpuscular Volume 87 fL (80-100); Mean Platelet Volume 10.5 fL (9.1-12.4); Platelet Count 439 K/mm3 (150-400); RDW Coefficient Variation 14.5 % (11.7-14.2); RDW Standard Deviation 45.9 fL (35.1-46.3); Red Blood Cell Count 4.28 M/mm3 (4.30-5.90)
[2021-05-22 19:05] LABS: PCO2 Arterial 47.1 mmHg (35-45); PO2 Arterial 78.4 mmHg (80-100); pH Blood Arterial 7.52 (7.35-7.45)
[2021-05-22 19:22] LABS: BAND PERCENT MAN 2 % (0-8); BASOPHILS PERCENT MAN 0 % (0-2); EOSINOPHILS PERCENT MAN 0 % (0-6); LYMPHOCYTES ABSOLUTE MAN 1.12 K/mm3 (0.84-5.20); LYMPHOCYTES PERCENT MAN 3 % (21-46); MONOCYTES ABSOLUTE MAN 2.99 K/mm3 (0.16-1.47); MONOCYTES PERCENT MAN 8 % (4-13); NEUTROPHILS ABSOLUTE MAN 33.28 K/mm3 (1.96-9.15); SEG NEUTROPHILS PERCENT MAN 87 % (41-73); TOTAL CELLS COUNTED 100
[2021-05-22 19:26] LABS: Troponin I <0.015 ng/mL (0.000-0.040)
[2021-05-22 19:39] LABS: Alanine Aminotransfer (ALT/SGP 32 U/L (12-78); Albumin, Blood 2.8 g/dL (3.4-5.0); Albumin/Globulin Ratio 0.4 (0.8-1.8); Alk Phos 150 U/L (50-136); Anion Gap 10 mmol/L (6-16); Aspartate Aminotrans (AST/SGOT 439 U/L (12-37); Bilirubin, Total 1.2 mg/dL (0.1-1.0); Blood Urea Nitrogen 91 mg/dL (8-24); Bun/Creatinine Ratio 39.4 (12.0-20.0); CO2, Blood 34 mmol/L (21-32); Calcium, Blood 9.8 mg/dL (8.5-10.1); Chloride, Blood 88 mmol/L (98-108); Creatinine, Blood 2.31 mg/dL (0.60-1.20); Globulin, Blood 6.5 g/dL (2.2-4.0); Glomerular Filtration Rate 27 (60-); Glucose, Blood 114 mg/dL (70-99); Potassium, Blood 3.1 mmol/L (3.5-5.5); Sodium, Blood 132 mmol/L (136-145); Total Protein, Blood 9.3 g/dL (6.4-8.2)
[2021-05-22 19:44] LABS: Source, Urine Catheter
[2021-05-22 19:53] LABS: Appearance, Urine Clear (Clear); Bilirubin, Urine Neg (Neg); Blood, Urine 5+ (Neg); Color, Urine Yellow (P-Yellow); Glucose Qualitative, Urine Neg (Neg); Ketones, Urine Neg (Neg); Leukocyte Esterase, Urine 2+ (Neg); Nitrite, Urine Neg (Neg); Protein, Urine 2+ (Neg); Specific Gravity, Urine 1.015 (1.003-1.022); Urobilinogen, Urine NORM (Normal)
[2021-05-22 20:00] LABS: Amorphous Light (0-Heavy); Bacteria Many /hpf; Mucus Light (0-Heavy); Squamous Epithelial Cells Few /hpf (Few); Yeast/Fungi Urine Many /hpf
[2021-05-22 20:17] LABS: U Amphetamine Screen Not Detected; U Barbituate Screen Not Detected; U Benzodiazapine Screen Not Detected; U Buprenorphine Screen Not Detected; U Cannabinoids Screen Not Detected; U Cocaine Screen Not Detected; U Methadone Screen Not Detected; U Methamphetamine Screen Not Detected; U Opiates Screen Not Detected; U Oxycodone Screen Not Detected; U Phencyclidine Screen Not Detected; U Propoxyphene Screen Not Detected
[2021-05-22 20:50] LABS: Influenza A, PCR NEGATIVE (NEGATIVE); Influenza B, PCR NEGATIVE (NEGATIVE); Resp Syncytial Virus, PCR NEGATIVE (NEGATIVE); SARS-Cov-2 (COVID-19) PCR, MMC NEGATIVE (NEGATIVE)
[2021-05-22 22:32] LABS: Source, Urine Catheter
[2021-05-22 23:06] LABS: Appearance, Urine Hazy (Clear); Bilirubin, Urine Neg (Neg); Blood, Urine 5+ (Neg); Color, Urine Yellow (P-Yellow); Glucose Qualitative, Urine Neg (Neg); Ketones, Urine Neg (Neg); Leukocyte Esterase, Urine 3+ (Neg); Nitrite, Urine Neg (Neg); Protein, Urine 1+ (Neg); Urobilinogen, Urine NORM (Normal)
[2021-05-22 23:40] LABS: Squamous Epithelial Cells Few /hpf (Few)
[2021-05-22 23:41] LABS: Amorphous Light (0-Heavy); Bacteria Mod /hpf; Granular Casts 0-2 /lpf (0)
[2021-05-22 23:42] LABS: Hyaline Casts 0-2 /lpf (0-2)
--- NOTE | 2021-05-23 01:54 | NUR ---
CARE ASSUMPTION PT ARRIVED TO THE UNIT OBTUNDED W MINIMAL RESPONSE TO STERNAL RUB. O2 SATS >90% ON 2-4L NC. LARGE AMOUNTS OF THICK SPUTUM SUCTIONED OUT OF PT'S MOUTH. PT HAS SCATTERED WOUNDS ON HIS BLE AND A CLOSED PRESSURE ULCER ON HIS COOCYX. BED BATH GIVEN AND WOUND CARE COMPLETE, PICS OF WOUNDS IN CHART. JO CATHER IN PLACE AND DRAINING HOWEVER, JO LEAKS AT PENIS DUE TO EROSION OF TISSUE AT BOTTOM OF HIS URETHRA. PT AFEBRILE AT THIS TIME. BP WNL AND STABLE. 0000 CBG SHOWED GLUCOSE OF 62 SO PROVIDER CONTACTED AND ORDER FOR D5W TO REPLACE THE NS.
[2021-05-23 04:19] LABS: BASOPHILS ABSOLUTE AUTO 0.12 K/mm3 (0.00-0.23); BASOPHILS PERCENT AUTO 0 % (0-2); EOSINOPHILS ABSOLUTE AUTO 0.01 K/mm3 (0.00-0.68); EOSINOPHILS PERCENT AUTO 0 % (0-6); Hematocrit 30.5 % (37.0-53.0); IMMATURE GRAN ABSOLUTE AUTO 0.67 K/mm3 (0.00-0.10); IMMATURE GRAN PERCENT AUTO 2 % (0-1); LYMPHOCYTES ABSOLUTE AUTO 2.61 K/mm3 (0.84-5.20); LYMPHOCYTES PERCENT AUTO 6 % (21-46); MONOCYTES ABSOLUTE AUTO 2.48 K/mm3 (0.16-1.47); MONOCYTES PERCENT AUTO 6 % (4-13); Mean Corpuscular HGB 28.8 pg (26.0-34.0); Mean Corpuscular HGB Conc 32.8 g/dL (31.5-36.5); Mean Corpuscular Volume 88 fL (80-100); Mean Platelet Volume 10.9 fL (9.1-12.4); NEUTROPHILS ABSOLUTE AUTO 38.81 K/mm3 (1.96-9.15); NEUTROPHILS PERCENT AUTO 87 % (41-73); Platelet Count 345 K/mm3 (150-400); RDW Coefficient Variation 14.6 % (11.7-14.2); RDW Standard Deviation 46.5 fL (35.1-46.3); Red Blood Cell Count 3.47 M/mm3 (4.30-5.90)
[2021-05-23 05:42] LABS: Alanine Aminotransfer (ALT/SGP 34 U/L (12-78); Albumin/Globulin Ratio 0.4 (0.8-1.8); Alk Phos 129 U/L (50-136); Anion Gap 11 mmol/L (6-16); Aspartate Aminotrans (AST/SGOT 446 U/L (12-37); Bilirubin, Total 1.1 mg/dL (0.1-1.0); Blood Urea Nitrogen 91 mg/dL (8-24); Bun/Creatinine Ratio 43.3 (12.0-20.0); CO2, Blood 34 mmol/L (21-32); Calcium, Blood 9.1 mg/dL (8.5-10.1); Chloride, Blood 92 mmol/L (98-108); Cholesterol 113 mg/dL (50-200); Globulin, Blood 5.3 g/dL (2.2-4.0); Glomerular Filtration Rate 31 (60-); Glucose, Blood 117 mg/dL (70-99); Sodium, Blood 137 mmol/L (136-145); Total Protein, Blood 7.3 g/dL (6.4-8.2); Triglycerides 119 mg/dL (30-160)
--- NOTE | 2021-05-23 05:50 | NUR ---
HOME MORTGAGE DISCLOSURE ACT SPECIALIST SUMMARY PT ARRIVED TO THE UNIT VERY OBTUNDED ONLY RESPONDING TO PAIN. THIS AM THE PT OPENED HIS EYES AND STATED HIS NAME AND DATE OF WHEN ASKED. O2 SATS >92% ON 1L NC. LARGE AMOUNTS OF THICK MUCOUS SUCTIONED FROM PT THIS SHIFT WHICH SEEMED TO GREATLY IMPROVE HIS OXYGENATION. BP WNL AND STABLE THIS AM. PT AFEBRILE THIS SHIFT. TELE SHOWING SR IN THE 80'S THIS SHIFT. D5W RUNNING AT 100ML/HR. WILL REPORT TO ONCOMING RN.
--- NOTE | 2021-05-23 17:41 | NUR ---
Spoke with pt's daughter who is his primary decision maker, as his is in a facility in [facility], and she is deaf. The pt has requested his daughter Tiny to be his primary decision maker. At this time, she has requested pt's CODE STATUS to be changed to DNR. New POLST filled out, Dr. Live gave verbal order.
--- NOTE | 2021-05-23 18:05 | NUR ---
SHIFT SUMMARY ASSUMED CARE AT 0700. SOMMULENT AND AROUSABLE TO VERBAL STIMULI ONLY. NO CONVERSATION, DOES NOT FOLLOW COMMANDS. LETHARGIC AND NOT MOVING EXTREMETIES. Q2 TURNS DURING SHIFT. JO CATH DRAINING CLEAR YELLOW URINE TO GRAVITY. ATTENDS IN PLACE. D5 INFUSING AT 100ML/HR. VSS, 3L 02 VIA NC. SATS MAINTAINING AT 93%. IN AFTERNOON BECAME ADJITATED PULLING AT LINES, PULLED 2 IV'S OUT, PULLING TELEMETRY OFF, UNABLE TO REDIRECT. BILATERAL SOFT RESTRAINTS PLACED. MOVING ALL FOUR EXTREMETIES, BUT REMAINS WEAK. BILATERAL HEEL PROTECTORS ON, MEPILEX ON COCCYX. INTERMITANTLY YELLING FROM ROOM. SPOKE WITH MD REGARDING TEMP OF 100.7. VERBAL ORDER GIVEN FOR TYLE FOR TEMP WHEN REACHES 102 OR IF PT EXTREMELY UNCOMFORTABLE. WILL CONTINUE TO MONITOR AND TREAT UNTIL CHANGE OF SHIFT.
--- NOTE | 2021-05-23 20:20 | NUR ---
CARE ASSUMPTION PT IS AXO TO SELF. PT LYING IN BED W SBW RESTRAINTS ON. O2 SATS >92% ON 2L NC. BP WNL. TELE SHOWING SR IN THE 90'S. PT REPOSITIONED AND CATHETER CARE COMPLETE.
[2021-05-24 05:04] LABS: BASOPHILS ABSOLUTE AUTO 0.04 K/mm3 (0.00-0.23); BASOPHILS PERCENT AUTO 0 % (0-2); EOSINOPHILS ABSOLUTE AUTO 0.05 K/mm3 (0.00-0.68); EOSINOPHILS PERCENT AUTO 0 % (0-6); Hematocrit 30.3 % (37.0-53.0); Hemoglobin 9.8 g/dL (13.5-17.5); IMMATURE GRAN ABSOLUTE AUTO 0.17 K/mm3 (0.00-0.10); IMMATURE GRAN PERCENT AUTO 1 % (0-1); LYMPHOCYTES ABSOLUTE AUTO 2.83 K/mm3 (0.84-5.20); LYMPHOCYTES PERCENT AUTO 11 % (21-46); MONOCYTES ABSOLUTE AUTO 1.64 K/mm3 (0.16-1.47); MONOCYTES PERCENT AUTO 6 % (4-13); Mean Corpuscular HGB 28.7 pg (26.0-34.0); Mean Corpuscular HGB Conc 32.3 g/dL (31.5-36.5); Mean Corpuscular Volume 89 fL (80-100); Mean Platelet Volume 11.3 fL (9.1-12.4); NEUTROPHILS ABSOLUTE AUTO 20.84 K/mm3 (1.96-9.15); NEUTROPHILS PERCENT AUTO 81 % (41-73); Platelet Count 365 K/mm3 (150-400); RDW Coefficient Variation 14.6 % (11.7-14.2); RDW Standard Deviation 47.2 fL (35.1-46.3); Red Blood Cell Count 3.42 M/mm3 (4.30-5.90); White Blood Cell Count 25.57 K/mm3 (4.00-11.30)
--- NOTE | 2021-05-24 05:38 | NUR ---
SORTING COWS WORKER SUMMARY PT IS AXO TO SELF. PT HAVING NON-SENSICAL TALK THROUGHOUT THE SHIFT WHEN HE IS BY HIMSELF HOWEVER, WHEN SPOKEN TO THE PT ANSWERS QUESTIONS APPROPRIATELY. ORAL CARE AND SUCTIONING PROVIDED THROUGHOUT THE SHIFT REMOVING MODERATE AMOUNTS OF THICK SPUTUM. BP WNL AND STABLE. PEAK TEMP OF 100.5. O2 SATS >92% ON 1L NC. TELE SHOWING SR IN THE 90'S THIS SHIFT. PT AWAKE ALL NIGHT OFTEN SINGING AND TALKING TO HIMSELF. WILL REPORT TO ONCOMING RN.
[2021-05-24 06:26] LABS: Albumin, Blood 1.8 g/dL (3.4-5.0); Albumin/Globulin Ratio 0.4 (0.8-1.8); Bilirubin, Total 0.8 mg/dL (0.1-1.0); Calcium, Blood 8.4 mg/dL (8.5-10.1); Creatinine, Blood 1.64 mg/dL (0.60-1.20); Globulin, Blood 4.9 g/dL (2.2-4.0); Potassium, Blood 2.9 mmol/L (3.5-5.5); Total Protein, Blood 6.7 g/dL (6.4-8.2)
--- NOTE | 2021-05-24 12:31 | NUR ---
ASSUMPTION OF CARE Received report from off going RN. Pt is resting in bed being assisted to eat by GRADE AND CENTER MARKER. He is awake and alert but has a history of confusion. His burciaga is patent. His restraints are in place as ordered and his IV fluids/meds are infusing as ordered.
[2021-05-24 13:22] LABS: Bun/Creatinine Ratio 46.6 (12.0-20.0); Calcium, Blood 8.7 mg/dL (8.5-10.1); Creatinine, Blood 1.48 mg/dL (0.60-1.20); Potassium, Blood 3.2 mmol/L (3.5-5.5)
[2021-05-24 16:23] LABS: Base Excess Venous 16.1 mmol/L; Bicarbonate Venous 37.7 mmol/L (24.0-30.0); PCO2 Venous 50.8 mmHg (38-42)
--- NOTE | 2021-05-24 16:38 | NUR ---
SHIFT SUMMARY Pt is resting in bed and awakens with care but remains a/o x 2-3. His soft wrist restraints remain in place per orders. Regina is patent. Dressings to chronic BLE wounds were changed and pressure releiving boots were placed. His power glide is patent and draws well for labs. His family has been given an update. He requires x 2 assist with turning and repositioning. He has his call light in reach but he yells out when he needs something.
--- NOTE | 2021-05-24 20:58 | NUR ---
PATIENT IS ALERT TO SELF ONLY, CAN FOLLOW COMMANDS, TRACKS, NOTED WORD SALAD, DIFFICULTY FINDING WORDS AT TIMES WITH TIME CAN MAKE NEEDS KNOWN IN SIMPLISTIC WAYS, SINGING TONIGHT AND MIMICS FACIAL EXPRESSION, E.G. SMILING. WOUND CARE COMPLETED ON BLE, PEREZ BOOTS ON, RESTRAINTS IN PLACE AND ASSESSMENT COMPLETED, PATIENT ABLE TO TAKE MEDICATIONS CRUSHED IN PUDDING WITH THICKEN FLUIDS NO NOTED DELAY COUGHING OR DIFFICULTY SWALLOWING.
[2021-05-25 12:12] LABS: BASOPHILS ABSOLUTE AUTO 0.04 K/mm3 (0.00-0.23); BASOPHILS PERCENT AUTO 0 % (0-2); EOSINOPHILS ABSOLUTE AUTO 0.24 K/mm3 (0.00-0.68); EOSINOPHILS PERCENT AUTO 1 % (0-6); Hematocrit 30.6 % (37.0-53.0); Hemoglobin 9.8 g/dL (13.5-17.5); IMMATURE GRAN ABSOLUTE AUTO 0.13 K/mm3 (0.00-0.10); IMMATURE GRAN PERCENT AUTO 1 % (0-1); LYMPHOCYTES ABSOLUTE AUTO 2.45 K/mm3 (0.84-5.20); LYMPHOCYTES PERCENT AUTO 14 % (21-46); MONOCYTES ABSOLUTE AUTO 1.45 K/mm3 (0.16-1.47); MONOCYTES PERCENT AUTO 8 % (4-13); Mean Corpuscular HGB 28.5 pg (26.0-34.0); Mean Corpuscular Volume 89 fL (80-100); Mean Platelet Volume 10.9 fL (9.1-12.4); NEUTROPHILS ABSOLUTE AUTO 13.33 K/mm3 (1.96-9.15); NEUTROPHILS PERCENT AUTO 76 % (41-73); Platelet Count 350 K/mm3 (150-400); RDW Coefficient Variation 14.3 % (11.7-14.2); RDW Standard Deviation 46.4 fL (35.1-46.3); Red Blood Cell Count 3.44 M/mm3 (4.30-5.90); White Blood Cell Count 17.64 K/mm3 (4.00-11.30)
[2021-05-25 12:31] LABS: Albumin, Blood 1.7 g/dL (3.4-5.0); Anion Gap 8 mmol/L (6-16); Blood Urea Nitrogen 55 mg/dL (8-24); Bun/Creatinine Ratio 45.8 (12.0-20.0); CO2, Blood 36 mmol/L (21-32); Calcium, Blood 8.3 mg/dL (8.5-10.1); Chloride, Blood 92 mmol/L (98-108); Glomerular Filtration Rate 58 (60-); Glucose, Blood 252 mg/dL (70-99); Magnesium, Blood 2.4 mg/dL (1.6-2.4); Phosphorus, Blood 2.3 mg/dL (2.5-4.9); Sodium, Blood 136 mmol/L (136-145)
[2021-05-25] MEDS ORDERED: MELA3 PO (13:21)
[2021-05-25] MEDS ORDERED: [UNRECOGNIZED DRUG - OTHER] TOP (13:23)
[2021-05-25] MEDS ORDERED: ACET325 PO (13:24)
[2021-05-25] MEDS ORDERED: AMLO10 PO (13:25)
[2021-05-25] MEDS ORDERED: ATORVASTATIN CA80 M1 PO (13:26)
[2021-05-25] MEDS ORDERED: BICALUTAMIDE50 M1 PO (13:27)
[2021-05-25] MEDS ORDERED: BUME2 PO (13:28)
[2021-05-25] MEDS ORDERED: CARBIDOPA LEVODOPA PO (13:30)
[2021-05-25] MEDS ORDERED: CHLO25B PO (13:31)
[2021-05-25] MEDS ORDERED: CLOP75 PO (13:32)
[2021-05-25] MEDS ORDERED: DONEPEZIL HCL5 M2 PO (13:33)
[2021-05-25] MEDS ORDERED: GABA300 PO (13:34)
[2021-05-25] MEDS ORDERED: AMARYL4 M1 PO (13:35)
[2021-05-25] MEDS ORDERED: Norco 5-325 MG PO (13:37)
[2021-05-25] MEDS ORDERED: BASAGLAR K100 UNIT/3 SC (13:38)
[2021-05-25] MEDS ORDERED: Ipratropium Bromide (13:39)
[2021-05-25] MEDS ORDERED: EUTHYROX112 MCG PO (13:40)
[2021-05-25] MEDS ORDERED: MIRTAZAPINE7.5 M1 PO (13:42)
[2021-05-25] MEDS ORDERED: MUPIROCIN1 G1 TOP (13:43)
[2021-05-25] MEDS ORDERED: OMEP20ER PO (13:44)
[2021-05-25] MEDS ORDERED: K-Dur20 MEQ PO (13:45)
[2021-05-25] MEDS ORDERED: ROPINIROLE HCL4 M2 PO (13:46)
[2021-05-25] MEDS ORDERED: ALDACTONE25 MG PO (13:47)
[2021-05-25] MEDS ORDERED: TRAZ100 PO (13:49)
[2021-05-25] MEDS ORDERED: Vitamin D PO (13:50)
--- NOTE | 2021-05-25 17:34 | NUR ---
SHIFT SUMMARY PT HAS BEEN RESTING AND SLEEPING OFF AND ON. PT HAS BEEN ALERT THOUGH ORIENTED ONLY TO SELF AND FAMILY. PT HAS CRIED OUT DURING ALL CARES. PT C/O GENERALIZED PAIN, TREATED PER EMAR. PT WAS VERBALLY CONSOLABLE. VSS, NO CHANGES TO CURRENT CONDITION.
[2021-05-25 21:41] LABS: Albumin, Blood 1.6 g/dL (3.4-5.0); Anion Gap 7 mmol/L (6-16); Blood Urea Nitrogen 50 mg/dL (8-24); Bun/Creatinine Ratio 46.7 (12.0-20.0); CO2, Blood 35 mmol/L (21-32); Calcium, Blood 8.7 mg/dL (8.5-10.1); Chloride, Blood 95 mmol/L (98-108); Creatinine, Blood 1.07 mg/dL (0.60-1.20); Glomerular Filtration Rate >60 (60-); Glucose, Blood 239 mg/dL (70-99); Phosphorus, Blood 3.4 mg/dL (2.5-4.9); Potassium, Blood 3.2 mmol/L (3.5-5.5); Sodium, Blood 137 mmol/L (136-145)
[2021-05-26 03:27] LABS: BASOPHILS ABSOLUTE AUTO 0.05 K/mm3 (0.00-0.23); BASOPHILS PERCENT AUTO 0 % (0-2); EOSINOPHILS ABSOLUTE AUTO 0.44 K/mm3 (0.00-0.68); EOSINOPHILS PERCENT AUTO 3 % (0-6); Hematocrit 30.5 % (37.0-53.0); Hemoglobin 9.8 g/dL (13.5-17.5); IMMATURE GRAN ABSOLUTE AUTO 0.12 K/mm3 (0.00-0.10); IMMATURE GRAN PERCENT AUTO 1 % (0-1); LYMPHOCYTES ABSOLUTE AUTO 2.98 K/mm3 (0.84-5.20); LYMPHOCYTES PERCENT AUTO 21 % (21-46); MONOCYTES ABSOLUTE AUTO 1.28 K/mm3 (0.16-1.47); MONOCYTES PERCENT AUTO 9 % (4-13); Mean Corpuscular HGB 28.3 pg (26.0-34.0); Mean Corpuscular HGB Conc 32.1 g/dL (31.5-36.5); Mean Corpuscular Volume 88 fL (80-100); Mean Platelet Volume 10.7 fL (9.1-12.4); NEUTROPHILS ABSOLUTE AUTO 9.24 K/mm3 (1.96-9.15); NEUTROPHILS PERCENT AUTO 65 % (41-73); Platelet Count 366 K/mm3 (150-400); RDW Coefficient Variation 14.3 % (11.7-14.2); Red Blood Cell Count 3.46 M/mm3 (4.30-5.90); White Blood Cell Count 14.11 K/mm3 (4.00-11.30)
[2021-05-26 04:01] LABS: Alanine Aminotransfer (ALT/SGP 39 U/L (12-78); Albumin, Blood 1.7 g/dL (3.4-5.0); Albumin/Globulin Ratio 0.3 (0.8-1.8); Alk Phos 99 U/L (50-136); Anion Gap 7 mmol/L (6-16); Aspartate Aminotrans (AST/SGOT 143 U/L (12-37); Bilirubin, Total 0.3 mg/dL (0.1-1.0); Blood Urea Nitrogen 45 mg/dL (8-24); Bun/Creatinine Ratio 43.3 (12.0-20.0); CO2, Blood 35 mmol/L (21-32); Calcium, Blood 8.8 mg/dL (8.5-10.1); Chloride, Blood 96 mmol/L (98-108); Creatinine, Blood 1.04 mg/dL (0.60-1.20); Globulin, Blood 5.7 g/dL (2.2-4.0); Glomerular Filtration Rate >60 (60-); Glucose, Blood 193 mg/dL (70-99); Phosphorus, Blood 2.8 mg/dL (2.5-4.9); Sodium, Blood 138 mmol/L (136-145); Total Protein, Blood 7.4 g/dL (6.4-8.2)
--- NOTE | 2021-05-26 05:13 | NUR ---
PATIENT PULLED OUT KAUSHAL CADENA ECONOMIC ANALYSIS DIRECTOR MADE AWARE, PATIENT K+ 3.0 AND ALBUMIN 1.7 NEW ORDERS FOR K+ 40MEQ IVP X ONE, AND ALBUMIN 25G IV X 1. ECONOMIC ANALYSIS DIRECTOR ATTEMPTING TO PUT NEW LINE IN.
[2021-05-26 13:50] LABS: Anion Gap 8 mmol/L (6-16); Blood Urea Nitrogen 39 mg/dL (8-24); Bun/Creatinine Ratio 40.3 (12.0-20.0); CO2, Blood 34 mmol/L (21-32); Calcium, Blood 8.5 mg/dL (8.5-10.1); Chloride, Blood 98 mmol/L (98-108); Creatinine, Blood 0.97 mg/dL (0.60-1.20); Glomerular Filtration Rate >60 (60-); Glucose, Blood 260 mg/dL (70-99); Sodium, Blood 140 mmol/L (136-145)
--- NOTE | 2021-05-26 17:24 | NUR ---
SHIFT SUMMARY PT HAS SLEPT OFF AND ON FOR THE DAY. PT IS ORIENTED X3, DOES NOT KNOW THE DATE. PT HAS BEEN QUIET AND COOPERATIVE FOR ALL CARE TASKS. PT DID NOT CRY OUT DURING REPOSITIONING OR OTHER CARE TASKS. VSS, NO OTHER CHANGES TO CONDITION.
[2021-05-27 04:31] LABS: BASOPHILS ABSOLUTE AUTO 0.08 K/mm3 (0.00-0.23); BASOPHILS PERCENT AUTO 1 % (0-2); EOSINOPHILS PERCENT AUTO 5 % (0-6); Hematocrit 32.9 % (37.0-53.0); Hemoglobin 10.3 g/dL (13.5-17.5); IMMATURE GRAN ABSOLUTE AUTO 0.21 K/mm3 (0.00-0.10); IMMATURE GRAN PERCENT AUTO 2 % (0-1); LYMPHOCYTES ABSOLUTE AUTO 3.11 K/mm3 (0.84-5.20); LYMPHOCYTES PERCENT AUTO 23 % (21-46); MONOCYTES ABSOLUTE AUTO 1.39 K/mm3 (0.16-1.47); MONOCYTES PERCENT AUTO 10 % (4-13); Mean Corpuscular HGB 28.3 pg (26.0-34.0); Mean Corpuscular HGB Conc 31.3 g/dL (31.5-36.5); Mean Corpuscular Volume 90 fL (80-100); Mean Platelet Volume 10.7 fL (9.1-12.4); NEUTROPHILS ABSOLUTE AUTO 8.16 K/mm3 (1.96-9.15); NEUTROPHILS PERCENT AUTO 60 % (41-73); Platelet Count 393 K/mm3 (150-400); RDW Coefficient Variation 14.3 % (11.7-14.2); RDW Standard Deviation 47.4 fL (35.1-46.3); Red Blood Cell Count 3.64 M/mm3 (4.30-5.90); White Blood Cell Count 13.65 K/mm3 (4.00-11.30)
[2021-05-27 05:13] LABS: Alanine Aminotransfer (ALT/SGP 42 U/L (12-78); Albumin, Blood 1.9 g/dL (3.4-5.0); Albumin/Globulin Ratio 0.3 (0.8-1.8); Alk Phos 92 U/L (50-136); Anion Gap 4 mmol/L (6-16); Aspartate Aminotrans (AST/SGOT 90 U/L (12-37); Bilirubin, Total 0.5 mg/dL (0.1-1.0); Blood Urea Nitrogen 35 mg/dL (8-24); Bun/Creatinine Ratio 36.6 (12.0-20.0); CO2, Blood 35 mmol/L (21-32); Chloride, Blood 101 mmol/L (98-108); Creatinine, Blood 0.96 mg/dL (0.60-1.20); Globulin, Blood 5.7 g/dL (2.2-4.0); Glomerular Filtration Rate >60 (60-); Glucose, Blood 222 mg/dL (70-99); Potassium, Blood 3.6 mmol/L (3.5-5.5); Sodium, Blood 140 mmol/L (136-145); Total Protein, Blood 7.6 g/dL (6.4-8.2)
--- NOTE | 2021-05-27 07:40 | NUR ---
SHIFT SUMMARY PT ALERT AND ORIENTED AT SHIFT CHANGE. AFTER THIS RN TO BEDSIDE TO MEDICATE PT AND ASSESS, PT PULLED OUT POWERGLIDE. PT BECOMES SUSPICIOUS TOWARDS THIS RN AND AGITATED. PT BECAME INCREASINGLY CONFUSED AND FRUSTRATED, C/O PAIN IN LEGS AND INABILITY TO MOVE L LEG. PT YELLING FROM ROOM WHEN STAFF STEP OUT. PT RIPPED OFF O2. HAD SEVERAL INCIDENTS OF REMOVING CANNULA. THIS RN CONTINUED TO REDIRECT AND REASSURE PT. PT SLEPT FOR SEVERAL HOURS UNTIL MORNING. REPOSITIONED T/O SHIFT AND PROVIDED W/ORAL CARE. HAD SOME DIFFICULTY W/SWALLOWING WATER THIS AM SO PO MEDS HELD.
--- NOTE | 2021-05-27 09:11 | NUR ---
CARE ASSUMPTION PATIENT A/OX3. VSS. PATIENT HAS NO IV ACCESS. PATIENT STATED THAT I NEED TO COMMUNICATE IN HIS COMMUNICATION. I ASKED WHAT TYPE OF COMMUNICATION HE USES AND HE STAYS QUITE AND STARES OFF IN THE DISTANCE AND I REPEAT THE QUESTION AND HE STILL DOESN'T ANSWER AND THEN WILL REPEAT HIMSELF. THIS RN EVEN WROTE ON A PAPER AND GAVE IT TO THE PATIENT, BUT THE PATIENT DIDN'T COOPERATE. PATIENT TOOK MEDS THIS AM WITH APPLESAUCE AND SPEECH WAS IN THIS AM. PATIENT FREQUENTLY CALLS OUT IN NONSENSICAL SPEECH AND THIS RN GOES IN TO ASK WHATS GOING ON AND THE PATIENT EITHER REMAINS QUITE OR STATES NOTHING. CALL LIGHT WITHIN REACH AND BED IN LOWEST POSITON. PATIENT REPORTS NO PAIN, CHEST PAIN, SHORTNESS OF BREATH, NUMBNESS OR TINGLING, OR HEADACHES. WILL CONTINUE TO MONITOR AND PROVIDE CARE. JO IN PLACE DRAINING WITH GRAVITY.
--- NOTE | 2021-05-27 17:09 | NUR ---
SHIFT SUMMARY/TRANSFER TO [facility] NO ACUTE CHANGES THIS SHIFT. JO IN PLACE DRAINING WITH GRAVITY. NO IV ACCESS. PATIENT WORKED WITH PHYSICAL THERAPY AND OCCUPATIONAL THERAPY TODAY. ORAL CARE TWICE TODAY AND REPOSITIONED EVERY TWO HOURS. CALL LIGHT WITHIN REACH. WILL CONTINUE TO MONITOR AND PROVIDE CARE UNTIL PATIENT TRANSFERS TO [facility] FLOOR ROOM 324.
--- NOTE | 2021-05-27 17:32 | NUR ---
REPORT TO ARTUR RN THIS RN GAVE REPORT TO GREG SWANSON ON MEDICAL FLOOR. PATIENT LEFT VIA BED TO NEW ROOM. ALL OF PATIENT BELONGINGS WITH PATIENT AND BROUGHT TO NEW ROOM.
--- NOTE | 2021-05-27 17:55 | NUR ---
PT TRANSFER TO UNIT REPORT RECIEVED PER USAMA RN, PCU. PT TRANSFER TO UNIT @ THIS TIME VIA HOSPITAL BED, BED SWAPPED TO AVOID SLIDE TRANSFER. PT A&O X3 AND SEEMS TO BE IN PLEASENT MOOD. PT ON 2L NC. LUNG SOUNDS CLEAR THOUGH DIMINISHED. JO DRAINING TO GRAVITY. SHEET CHANGED ON ARRIVAL, PT APPEARED PAINFUL W/ RIGHT SIDED ROLL, DENIES PAIN @ THIS TIME. ORIENTATED TO ROOM, CALL LIGHT W/IN REACH.
--- NOTE | 2021-05-27 18:32 | NUR ---
PATIENT A/OX4, UP INDEPENDENTLY IN ROOM. VSS, ON RA. IV TO R FA WNL AND SL BETWEEN ABX. PATIENT REPORTS BETTER PAIN CONTROL TODAY. ABX OINTMENT TO R EYE. R EYE VERY RED AND SWOLLEN. DRESSING TO R FOOT CHANGED THIS SHIFT AND REMAINS C/D/I. TOLERATING CARDIAC DIET. CALM AND COOPERATIVE WITH CARE. ABLE TO MAKE NEEDS KNOWN.
--- NOTE | 2021-05-28 04:06 | NUR ---
GOLD LEAF LAYER SUMMARY AWAKE EARLIER, QUITE AGITATED/AGGRESSIVE WITH RESISTANCE OF CARE WHEN STAFF WAS CHANGING HIM DUE TO INCONT. REDIRECTED, REPOSITIONED AND ENCOURAGED TO COMPLY WITH SAFETY PRECAUTIONS. CURRENTLY RESTING QUIETLY WITH CALL LIGHT IN REACH. ISOLATION PRECAUTIONS MAINTAINED.
[2021-05-28 05:19] LABS: BASOPHILS ABSOLUTE AUTO 0.11 K/mm3 (0.00-0.23); BASOPHILS PERCENT AUTO 1 % (0-2); EOSINOPHILS ABSOLUTE AUTO 0.51 K/mm3 (0.00-0.68); EOSINOPHILS PERCENT AUTO 4 % (0-6); Hematocrit 36.3 % (37.0-53.0); Hemoglobin 11.1 g/dL (13.5-17.5); IMMATURE GRAN ABSOLUTE AUTO 0.27 K/mm3 (0.00-0.10); IMMATURE GRAN PERCENT AUTO 2 % (0-1); LYMPHOCYTES ABSOLUTE AUTO 3.19 K/mm3 (0.84-5.20); LYMPHOCYTES PERCENT AUTO 23 % (21-46); MONOCYTES ABSOLUTE AUTO 1.29 K/mm3 (0.16-1.47); MONOCYTES PERCENT AUTO 9 % (4-13); Mean Corpuscular HGB 28.1 pg (26.0-34.0); Mean Corpuscular HGB Conc 30.6 g/dL (31.5-36.5); Mean Corpuscular Volume 92 fL (80-100); Mean Platelet Volume 10.9 fL (9.1-12.4); NEUTROPHILS ABSOLUTE AUTO 8.39 K/mm3 (1.96-9.15); NEUTROPHILS PERCENT AUTO 61 % (41-73); Platelet Count 454 K/mm3 (150-400); RDW Coefficient Variation 14.2 % (11.7-14.2); RDW Standard Deviation 48.4 fL (35.1-46.3); Red Blood Cell Count 3.95 M/mm3 (4.30-5.90); White Blood Cell Count 13.76 K/mm3 (4.00-11.30)
[2021-05-28 06:22] LABS: Alanine Aminotransfer (ALT/SGP 33 U/L (12-78); Albumin, Blood 2.1 g/dL (3.4-5.0); Albumin/Globulin Ratio 0.4 (0.8-1.8); Alk Phos 99 U/L (50-136); Anion Gap 8 mmol/L (6-16); Aspartate Aminotrans (AST/SGOT 71 U/L (12-37); Bilirubin, Total 0.4 mg/dL (0.1-1.0); Blood Urea Nitrogen 39 mg/dL (8-24); Bun/Creatinine Ratio 34.2 (12.0-20.0); CO2, Blood 33 mmol/L (21-32); Calcium, Blood 8.7 mg/dL (8.5-10.1); Chloride, Blood 103 mmol/L (98-108); Creatinine, Blood 1.14 mg/dL (0.60-1.20); Glomerular Filtration Rate >60 (60-); Glucose, Blood 223 mg/dL (70-99); Potassium, Blood 3.7 mmol/L (3.5-5.5); Sodium, Blood 144 mmol/L (136-145); Total Protein, Blood 7.1 g/dL (6.4-8.2)
--- NOTE | 2021-05-28 17:07 | NUR ---
SHIFT SUMMARY PT A&O X3. PT AGGITATED @ TIMES, REQUIRED REDIRECTING THOUGH APPEARS IN AN OVERALL GOOD MOOD. HYPERGLYCEMIA MEDICATED PER EMAR, SLIDE SCALE CHANGE. TOLERATING PO INTAKE WELL. WORKED W/ SPEECH THERAPY. C/O PAIN W/ ROLL TO L SIDE, RELIEVED W/ SUPINE POSITION. JO DRAINING DARK YELLOW LIQUID TO GRAVITY. BILATERAL LOWER DRESSING CHANGED, WOUNDS PHOTOGRAPHED. CALL LIGHT W/IN REACH.
[2021-05-29 05:11] LABS: BASOPHILS ABSOLUTE AUTO 0.07 K/mm3 (0.00-0.23); BASOPHILS PERCENT AUTO 0 % (0-2); EOSINOPHILS ABSOLUTE AUTO 0.54 K/mm3 (0.00-0.68); EOSINOPHILS PERCENT AUTO 3 % (0-6); Hematocrit 35.1 % (37.0-53.0); IMMATURE GRAN ABSOLUTE AUTO 0.37 K/mm3 (0.00-0.10); IMMATURE GRAN PERCENT AUTO 2 % (0-1); LYMPHOCYTES ABSOLUTE AUTO 4.37 K/mm3 (0.84-5.20); LYMPHOCYTES PERCENT AUTO 25 % (21-46); MONOCYTES ABSOLUTE AUTO 1.46 K/mm3 (0.16-1.47); MONOCYTES PERCENT AUTO 8 % (4-13); Mean Corpuscular HGB 28.2 pg (26.0-34.0); Mean Corpuscular HGB Conc 31.3 g/dL (31.5-36.5); Mean Corpuscular Volume 90 fL (80-100); Mean Platelet Volume 11.1 fL (9.1-12.4); NEUTROPHILS ABSOLUTE AUTO 11.02 K/mm3 (1.96-9.15); NEUTROPHILS PERCENT AUTO 62 % (41-73); Platelet Count 435 K/mm3 (150-400); RDW Coefficient Variation 14.5 % (11.7-14.2); RDW Standard Deviation 47.2 fL (35.1-46.3); White Blood Cell Count 17.83 K/mm3 (4.00-11.30)
--- NOTE | 2021-05-29 05:52 | NUR ---
SHIFT SUMMARY AOX1-UNAWARE SITUATION, DATE OR PLACE. STATES "WELL WE ARE CURRENTLY AT THE [facility]." HX DEMENTIA. PT YELLS OUT "HELLO" ALONG WITH NEEDS FREQUENTLY WHEN AWAKE. CAN BE IRRITABLE c STAFF WHEN PROVIDING CARE. DENIES ANY N/V, SOB, OR PAIN @REST. JO PATENT & DRAINING DARK YELLOW URINE c SEDIMENT. STAGE 1 PRESSURE SORE COCCYX. CALL LIGHT & BED ALARM IN PLACE. WCTM.
--- NOTE | 2021-05-29 12:01 | NUR ---
DR. ESCALERA CONTACTED DR STANLEY AND INFORMED OF THE GLUCOSE READING OF 391, PLAN TO ADMIN 10 UNITS. AC & HS UPDATED AND LONG ACTING DOSE INCREASED THIS SHIFT PER DR. MEAD.
--- NOTE | 2021-05-29 14:32 | NUR ---
PT STATES NOT FEELING GOOD PT APPEARS TO BE SHAKING, UPPER ARMS FEEL COOL TO THE TOUCH, HANDS WARM TO TOUCH. PT DID NOT EAT LUNCH, WHICH IS UNUSUAL. PT APPEARS TO BE TIRED AND ONLY OPENS EYES WHEN DIRECTED. PT STATES, "I'M NOT FEELING GOOD." THOUGH CAN NOT TELL STAFF WHAT IS WRONG. VITAL SIGNS AND BLOOD GLUCOSE ASSESSED, WILL CONTINUE TO MONITOR FOR S/S OF FURTHER CHANGE.
--- NOTE | 2021-05-29 18:04 | NUR ---
SHIFT SUMMARY PT A&O X3 AND IN PLEASENT MOOD T/O SHIFT. PT DID HAVE AN EPISODE AFTER LUNCH, PLEASE SEE NOTE. TOLERATING PO INTAKE WELL. JO IN PLACE DRAINING DARK YELLOW URINE W/ SEDIMENT NOTED. PT CALLED OUT T/O MORNING HOURS OF SHIFT. FREQUENT REDIRECTING AND REORIENTATING NEEDED. PT TRIED TO LEAVE THE BED, WAS FOUND IN THE DANGLE POSITION WHEN BED ALARM SOUNDED. CATHETER WAS FLUSHED AND WAS ABLE TO DRAIN W/ A LARGE AMOUNT OF SEDIMENT NOTED. HYPERGLYCEMIA TREATED PER DR. VETO CONTACTED SEE NOTE. CALL LIGHT W/IN REACH.
--- NOTE | 2021-05-30 04:30 | NUR ---
SHIFT SUMMARY ADMITTED FOR UTI/SEPSIS. DNR CODE. CONTACT PRECAUTIONS FOR VRE IN URINE. PLAN IS FOR PLACEMENT. CHRONIC JO IS IN PLACE. HE IS ON ASPIRATION PRECAUTIONS, NECTAR THICK LIQUIDS - NO STRAWS. MEDS GIVEN ONE @ A TIME IN APPLESAUCE. HE IS ON 2 LPM O2. HERE HE IS BEDREST/LIFT FOR TRANSFERS. HIS PREVIOUS FACILITY IS UNABLE TO TAKE HIM BACK HIS TRANSFER NEEDS ARE BEYOND THEIR CARE. NUMEROUS SCABS ON HIS CHEST, ARMS, HEAD, AND LEGS. MEPILEX FOR AN ULCER ON HIS COCCYX.
[2021-05-30 05:10] LABS: BASOPHILS ABSOLUTE AUTO 0.07 K/mm3 (0.00-0.23); BASOPHILS PERCENT AUTO 1 % (0-2); EOSINOPHILS ABSOLUTE AUTO 0.16 K/mm3 (0.00-0.68); EOSINOPHILS PERCENT AUTO 1 % (0-6); Hematocrit 35.4 % (37.0-53.0); IMMATURE GRAN ABSOLUTE AUTO 0.32 K/mm3 (0.00-0.10); IMMATURE GRAN PERCENT AUTO 2 % (0-1); LYMPHOCYTES ABSOLUTE AUTO 2.87 K/mm3 (0.84-5.20); LYMPHOCYTES PERCENT AUTO 21 % (21-46); MONOCYTES ABSOLUTE AUTO 1.73 K/mm3 (0.16-1.47); MONOCYTES PERCENT AUTO 13 % (4-13); Mean Corpuscular HGB 28.1 pg (26.0-34.0); Mean Corpuscular HGB Conc 31.1 g/dL (31.5-36.5); Mean Corpuscular Volume 91 fL (80-100); NEUTROPHILS ABSOLUTE AUTO 8.52 K/mm3 (1.96-9.15); NEUTROPHILS PERCENT AUTO 62 % (41-73); Platelet Count 423 K/mm3 (150-400); RDW Coefficient Variation 14.9 % (11.7-14.2); RDW Standard Deviation 48.8 fL (35.1-46.3); Red Blood Cell Count 3.91 M/mm3 (4.30-5.90); White Blood Cell Count 13.67 K/mm3 (4.00-11.30)
[2021-05-30 06:27] LABS: Albumin, Blood 2.2 g/dL (3.4-5.0); Anion Gap 7 mmol/L (6-16); Blood Urea Nitrogen 43 mg/dL (8-24); Bun/Creatinine Ratio 32.3 (12.0-20.0); CO2, Blood 32 mmol/L (21-32); Calcium, Blood 8.5 mg/dL (8.5-10.1); Chloride, Blood 99 mmol/L (98-108); Creatinine, Blood 1.33 mg/dL (0.60-1.20); Glomerular Filtration Rate 52 (60-); Glucose, Blood 181 mg/dL (70-99); Phosphorus, Blood 3.3 mg/dL (2.5-4.9); Potassium, Blood 4.4 mmol/L (3.5-5.5); Sodium, Blood 138 mmol/L (136-145)
--- NOTE | 2021-05-30 08:00 | NUR ---
GLUCOMETER NOT CONNECTING WITH NETWORK, CBG 166.
--- NOTE | 2021-05-30 08:00 | NUR ---
GLUCOMETER NOT CONNECTING WITH NETWORK, CBG 166.
[2021-05-30 11:15] LABS: Source, Urine Foley catheter
--- NOTE | 2021-05-30 11:21 | NUR ---
GLUCOMETER NOT INTERFACING, CBG 232.
[2021-05-30 11:28] LABS: Appearance, Urine Clear (Clear); Bilirubin, Urine Neg (Neg); Blood, Urine 3+ (Neg); Color, Urine Yellow (P-Yellow); Glucose Qualitative, Urine 2+ (Neg); Ketones, Urine 1+ (Neg); Leukocyte Esterase, Urine 3+ (Neg); Nitrite, Urine Neg (Neg); Protein, Urine 3+ (Neg); Urobilinogen, Urine 1+ (Normal)
[2021-05-30 11:39] LABS: Bacteria Many /hpf; Squamous Epithelial Cells Few /hpf (Few)
[2021-05-30 11:40] LABS: Amorphous Light (0-Heavy); Mucus Light (0-Heavy); Yeast/Fungi Urine Many /hpf
--- NOTE | 2021-05-30 12:15 | NUR ---
NO IV ACCESS, FLUID BOLUS PENDING IV ACCESS.
--- NOTE | 2021-05-30 17:04 | NUR ---
SHIFT SUMMARY NO ACUTE EVENTS THIS SHIFT. PT HAS BEEN CONFUSED AND LETHARGIC THIS SHIFT, ORIENTED TO SELF AND SURROUNDINGS. PT UNABLE TO STATE WHERE HE IS, WILL AROUSE TO PHYSICAL AND VERBAL STIMULUS. PT HAD ELEVATED TEMPERATURE THIS SHIFT, MEDICATED WITH TYLENOL PER EMAR. ON 2 L O2 VIA NASAL CANNULA. JO CATHETER PATENT, DRAINING TO GRAVITY WITH SEDIMENT NOTED BY DR. MEAD. POWERGLIDE PLACED TODAY. X1 FLUID BOLUS GIVEN TODAY. PT UNABLE TO ASSIST STAFF WITH REPOSITIONING. BARRIER CREAM APPLIED TO COCCYX. LEG DRESSINGS C/D/I.
--- NOTE | 2021-05-31 04:06 | NUR ---
SHIFT SUMMARY ADMITTED FOR UTI/SEPSIS. DNR CODE. CONTACT PRECAUTIONS FOR VRE IN URINE. PLAN IS FOR PLACEMENT. LR INFUSING @ 125 ML/HR. CHRONIC JO IN PLACE. HE IS A LIFT PT. HE IS INCONTINENT. WE ARE CRUSHING HIS MEDS IN APPLESAUCE HE IS TAKING TO CHEWING THEM. LARGE LOOSE BM'S REPORTED ON DAY SHIFT. LARGE LOOSE BM ON THIS SHIFT. HE IS INCONTINENT. HE IS ON 2 LPM O2. HIS CALVES ARE BOTH COVERED IN C/D/I DRESSINGS. HIS COCCYX IS EXCORIATED, WE DID PUT CREAM ON THAT. Q2 TURNS. IV ANTIB RX ARE SCHEDULED. NECTAR THICK LIQUIDS, NO STRAWS. HE IS NOT RESPONDING IN FULL SENTENCES THIS SHIFT, HE IS PREFERING TO SLEEP.
[2021-05-31 08:35] LABS: BASOPHILS ABSOLUTE AUTO 0.04 K/mm3 (0.00-0.23); BASOPHILS PERCENT AUTO 0 % (0-2); EOSINOPHILS ABSOLUTE AUTO 0.07 K/mm3 (0.00-0.68); EOSINOPHILS PERCENT AUTO 1 % (0-6); Hematocrit 34.5 % (37.0-53.0); Hemoglobin 10.6 g/dL (13.5-17.5); IMMATURE GRAN ABSOLUTE AUTO 0.17 K/mm3 (0.00-0.10); IMMATURE GRAN PERCENT AUTO 1 % (0-1); LYMPHOCYTES ABSOLUTE AUTO 2.25 K/mm3 (0.84-5.20); LYMPHOCYTES PERCENT AUTO 18 % (21-46); MONOCYTES ABSOLUTE AUTO 1.61 K/mm3 (0.16-1.47); MONOCYTES PERCENT AUTO 13 % (4-13); Mean Corpuscular HGB 28.3 pg (26.0-34.0); Mean Corpuscular HGB Conc 30.7 g/dL (31.5-36.5); Mean Corpuscular Volume 92 fL (80-100); Mean Platelet Volume 11.3 fL (9.1-12.4); NEUTROPHILS ABSOLUTE AUTO 8.32 K/mm3 (1.96-9.15); NEUTROPHILS PERCENT AUTO 67 % (41-73); Platelet Count 369 K/mm3 (150-400); RDW Coefficient Variation 15.3 % (11.7-14.2); RDW Standard Deviation 50.3 fL (35.1-46.3); Red Blood Cell Count 3.74 M/mm3 (4.30-5.90); White Blood Cell Count 12.46 K/mm3 (4.00-11.30)
[2021-05-31 08:55] LABS: Influenza A, PCR NEGATIVE (NEGATIVE); Influenza B, PCR NEGATIVE (NEGATIVE); Resp Syncytial Virus, PCR NEGATIVE (NEGATIVE)
[2021-05-31 09:02] LABS: Albumin, Blood 2.1 g/dL (3.4-5.0); Anion Gap 9 mmol/L (6-16); Blood Urea Nitrogen 54 mg/dL (8-24); CO2, Blood 33 mmol/L (21-32); Chloride, Blood 101 mmol/L (98-108); Creatinine, Blood 1.42 mg/dL (0.60-1.20); Glomerular Filtration Rate 48 (60-); Glucose, Blood 159 mg/dL (70-99); Phosphorus, Blood 4.5 mg/dL (2.5-4.9); Sodium, Blood 143 mmol/L (136-145)
[2021-05-31 09:41] LABS: SARS-Cov-2 (COVID-19) PCR, MMC POSITIVE (NEGATIVE)
--- NOTE | 2021-05-31 11:32 | NUR ---
Spoke with Dr Live this AM and discussed case. Pt having increased episodes of agitation and refusing care at times. Family may benefit from discussion regarding goals of care including consideration of hospice. 81 year old make admitted to the hospice for Sepsis. Pt's medical history and comorbidities include: Dementia, Parkinson's Disease, DM2, HTN, Recurrent UTIs, Hypothyroidism, Obesity, Prostate Cancer, Sleep Apnea, and Chronic Lower Extremity Lymphedema. Spoke with Primary RN Candida and discussed case. Pt forgetful, has fair appetite, Chronic Tapia Catheter, Incontinent of bowel, does not ambulate and requires mechanical lift for transfers, requires assistance with bathing and dressing, has some dysphagia and is on nectar thick liquids. Pt also requires supervision with feeding. Pt is A&O to self and family. When asked place, reason for hospital stay, and current year, he closed his eyes with each question unable to answer. Pt does appear to be capable of some meaningful conversation still. Engaged in therapeutic discussin regarding goals of care with Pt requesting I speak to his daughter Tiny. Ended visit to allow Pt to rest. Called and left message on daughter Tiny's voicemail with request for return phone call. PPS 30% ADLs 6/6 FAST 7C Albumin 2.1 Pt may benefit from hospice services and is high risk for readmission. Plan: Will discuss goals of care with daughter upon her return phone call. Palliative Care will remain available
--- NOTE | 2021-05-31 12:37 | NUR ---
Received returned phone call from Pt's daughter Tiny. Provided update and reviewed plan of care. Engaged in therapeutic discussion regarding goals of care. Offered therapeutic listening as Tiny reports Pt being on hospice in the past and he stabalized and was taken off hospice. Continued therapeutic listening and answered questions. Tiny reports she will discuss with family at some point regarding the option for hospice but would like to continue current plan of care. She is hoping Sample Dye Mixer can assist with finding placement for Pt close to [place]. Tiny expresses appreciation and reports no other concerns at this time. Palliative Care will remain available.
--- NOTE | 2021-05-31 17:07 | NUR ---
NO ACUTE CHANGES TODAY. PT WAS MUCH MORE ALERT IN AM AND SHIFT HAS PROGRESSED PT MUCH MORE CONFUSED. PT IS WANTING TO FOLD SHEET AND DOESN'T KNOW WHY. CAN'T REMEMBER WHERE HE IS. PT TURNED Q2 HRS AND JO IS RUNNING WELL. PT DID HAVE LOW BP 90/[address] MEAD WAS NOTIFIED. PT IS TO BE MONITORED AT THIS TIME. PT DID HAVE POSITIVE COVID TEST, BUT IS SATING ROOM AIR AT 92%. LOW EXTREMETIES LEG WRAPS WERE CHANGED PT TOLERATED WELL. NO DISTRESS NOTED AT THIS TIME.
--- NOTE | 2021-06-01 05:30 | NUR ---
SHIFT SUMMARY 81 YR M ADMITTED ON 05/22/21 FOR SEPSIS AND UTI. DNR. COVID POSITIVE. PT WAS AWAKE MOST OF THE NIGHT BUT HAS A VERY FLAT EFFECT. REGULAR DIET, THIN LIQUIDS, NO STRAW. BP HAS BEEN RUNNING LOW 112/52 @1947. DOC WAS NOTIFIED PRIOR SHIFT. OBSERVATION FOR NOW. PT WILL DISCHARGE WITH HOSPICE CARE.
[2021-06-01 05:57] LABS: Albumin, Blood 2.1 g/dL (3.4-5.0); Anion Gap 9 mmol/L (6-16); Blood Urea Nitrogen 47 mg/dL (8-24); Bun/Creatinine Ratio 36.7 (12.0-20.0); CO2, Blood 30 mmol/L (21-32); Calcium, Blood 7.9 mg/dL (8.5-10.1); Chloride, Blood 100 mmol/L (98-108); Creatinine, Blood 1.28 mg/dL (0.60-1.20); Glomerular Filtration Rate 54 (60-); Glucose, Blood 137 mg/dL (70-99); Phosphorus, Blood 3.6 mg/dL (2.5-4.9); Potassium, Blood 3.8 mmol/L (3.5-5.5); Sodium, Blood 139 mmol/L (136-145)
[2021-06-01 06:51] LABS: BASOPHILS ABSOLUTE AUTO 0.03 K/mm3 (0.00-0.23); BASOPHILS PERCENT AUTO 0 % (0-2); EOSINOPHILS ABSOLUTE AUTO 0.07 K/mm3 (0.00-0.68); EOSINOPHILS PERCENT AUTO 1 % (0-6); Hematocrit 34.4 % (37.0-53.0); Hemoglobin 10.7 g/dL (13.5-17.5); IMMATURE GRAN ABSOLUTE AUTO 0.14 K/mm3 (0.00-0.10); IMMATURE GRAN PERCENT AUTO 1 % (0-1); LYMPHOCYTES ABSOLUTE AUTO 2.85 K/mm3 (0.84-5.20); LYMPHOCYTES PERCENT AUTO 25 % (21-46); MONOCYTES ABSOLUTE AUTO 1.44 K/mm3 (0.16-1.47); MONOCYTES PERCENT AUTO 13 % (4-13); Mean Corpuscular HGB 28.4 pg (26.0-34.0); Mean Corpuscular HGB Conc 31.1 g/dL (31.5-36.5); Mean Corpuscular Volume 91 fL (80-100); Mean Platelet Volume 11.5 fL (9.1-12.4); NEUTROPHILS ABSOLUTE AUTO 6.91 K/mm3 (1.96-9.15); NEUTROPHILS PERCENT AUTO 60 % (41-73); Platelet Count 355 K/mm3 (150-400); RDW Coefficient Variation 15.4 % (11.7-14.2); RDW Standard Deviation 50.3 fL (35.1-46.3); Red Blood Cell Count 3.77 M/mm3 (4.30-5.90); White Blood Cell Count 11.44 K/mm3 (4.00-11.30)
--- NOTE | 2021-06-01 18:36 | NUR ---
REPLACED CATHETER BAG TODAY AT 1330
--- NOTE | 2021-06-01 18:45 | NUR ---
SHIFT SUMMARY PT A&O TO SELF ONLY; PT NOT ANSWERING DATE/TIME, PLACE OR EVENT QUESTIONS. PT SLOW TO RESPOND, APPEARS MILLE LACS. PT REPORTS BACK PAIN, MEDCIATED PER EMAR. PT ON BEDREST, REPOSITIONED FOR COMFORT; PT ABLE TO ASSIST WITH TURNING SIDE TO SIDE, AND WAS ABLE TO GET SELF TO SIDE OF BED. PT DENIES CHEST PAIN, SOB, NASUEA AND DIZZINESS. PT RECEIVING IV ANTIBITOICS. DRESSING CHANGED TO LLE. VSS. NO OTHER ACUTE CHANGES NOTED. WILL CONTINUE TO MONITOR UNITL REPORT GIVEN TO ONCOMING RN.
--- NOTE | 2021-06-02 05:05 | NUR ---
SHIFT SUMMARY 81 YR M ADMITTED ON 05/22/21 FOR SEPSIS AND UTI. DNR. PT IS BEDRIDDEN AND IS UNABLE OR UNWILLING TO PARTICIPATE IN HIS OWN CARE. HE IS CONFUSED AT TIMES BUT CAN ALSO BE LUCID, FRIENDLY AND CHARMING. HE HAS A CHRONIC JO AND IS INCONTINENT. HIS BP HAS BEEN ON THE LOWER SIDE BUT HAS COME UP FROM YESTERDAY. NO ACUTE CHANGES FROM LAST SHIFT. PT WILL EVENTUALLY DISCHARGE WITH HOSPIC.
[2021-06-02 07:24] LABS: BASOPHILS ABSOLUTE AUTO 0.03 K/mm3 (0.00-0.23); BASOPHILS PERCENT AUTO 0 % (0-2); EOSINOPHILS ABSOLUTE AUTO 0.06 K/mm3 (0.00-0.68); EOSINOPHILS PERCENT AUTO 1 % (0-6); Hematocrit 31.8 % (37.0-53.0); IMMATURE GRAN ABSOLUTE AUTO 0.07 K/mm3 (0.00-0.10); IMMATURE GRAN PERCENT AUTO 1 % (0-1); LYMPHOCYTES ABSOLUTE AUTO 3.46 K/mm3 (0.84-5.20); LYMPHOCYTES PERCENT AUTO 40 % (21-46); MONOCYTES ABSOLUTE AUTO 1.07 K/mm3 (0.16-1.47); MONOCYTES PERCENT AUTO 12 % (4-13); Mean Corpuscular HGB 28.6 pg (26.0-34.0); Mean Corpuscular HGB Conc 31.4 g/dL (31.5-36.5); Mean Corpuscular Volume 91 fL (80-100); Mean Platelet Volume 11.1 fL (9.1-12.4); NEUTROPHILS ABSOLUTE AUTO 4.08 K/mm3 (1.96-9.15); NEUTROPHILS PERCENT AUTO 47 % (41-73); Platelet Count 313 K/mm3 (150-400); RDW Coefficient Variation 15.3 % (11.7-14.2); RDW Standard Deviation 50.3 fL (35.1-46.3); White Blood Cell Count 8.77 K/mm3 (4.00-11.30)
[2021-06-02 08:54] LABS: Bun/Creatinine Ratio 35.2 (12.0-20.0); Calcium, Blood 7.5 mg/dL (8.5-10.1); Creatinine, Blood 1.22 mg/dL (0.60-1.20); Potassium, Blood 3.3 mmol/L (3.5-5.5)
--- NOTE | 2021-06-02 16:08 | NUR ---
PT ABLE TO MOVE HIS LEGS OFF THE BED AND ONTO THE FLOOR. PT DOES NOT RECALL DOING THIS AND DOES NOT KNOW HOW HE DID IT. 3 PEOPLE TO HELP HIM BACK INTO BED. VSS. PT TO BE TRANSFERRED TO CAMERA ROOM FOR CLOSER OBERSERVATION.
--- NOTE | 2021-06-02 18:33 | NUR ---
SHIFT SUMMARY PT A/O X2 WITH HISTORY OF DEMENTIA. HOSPITALIZED WITH COVID BUT NO CURRENT COVID SYMPTOMS. DRESSING CHANGED ON L ANKLE. PT WAS ABLE TO GET HIS LEGS OUT OF BED AND WAS UNABLE TO GET BACK IN TODAY. PT REQUIRED MULTIPLE STAFF MEMBERS TO GET BACK INTO BED. PT MOVED TO A ROOM WITH CAMERA IN ORDER TO BE BETTER SUPERVISED. BEDSIDE REPORT TO BE GIVEN. VSS.
--- NOTE | 2021-06-03 01:30 | NUR ---
TYLENOL RECIEVED FOR C/O BACK AND BILAT LEG PAIN, WILL MONITOR FOR AFFECT.
--- NOTE | 2021-06-03 04:02 | NUR ---
SUMMARY: PT A/OX2-3, WAS FIGITY AND RESTLESS AT TIMES AND REQUIRED REMINDERS PRN. HE'D NEGLECT HIS CALL LIGHT AND YELL INTO HALLS FOR ASSIST DESPITE ATTEMPTS AT EDUCATING IT'S USE. CAMERA MONITORING IN PLACE AND BED ALARM ON FOR FALL RISK. HE'S WEAK AND MOVES SLOWLY BUT IS ABLE TO GET LEGS OVER EOB AT TIMES, LIFT REQUIRED FOR REPOSITIONING. MEPILEX TO COCCYX IS C/D/I, REDNESS W/EXCORIATION NOTED TO BUTTOCKS AND GILDA AREA. JO LEAKS AT TIMES D/T SPLIT MEATUS, ATTENDS CHANGED PRN. LLE DX REMAINS INTACT AND PEREZ BOOTS ARE IN PLACE FOR HEEL PROTECTION/SBD PREVENTION. PT PICKS SELF OFTEN W/MANY SCATTERED BRUISES AND SCABS OBSERVED. TYLENOL RECIEVED PRN FOR TOLERABLE RELIEF OF BACK AND BLE PAIN. NO ACUTE CHANGES, VSS/AFEBRILE. WCTM AND REPORT TO DAY RN.
[2021-06-03 05:24] LABS: Anion Gap 7 mmol/L (6-16); Blood Urea Nitrogen 37 mg/dL (8-24); Bun/Creatinine Ratio 32.2 (12.0-20.0); CO2, Blood 31 mmol/L (21-32); Calcium, Blood 7.6 mg/dL (8.5-10.1); Chloride, Blood 103 mmol/L (98-108); Creatinine, Blood 1.15 mg/dL (0.60-1.20); Glomerular Filtration Rate >60 (60-); Glucose, Blood 124 mg/dL (70-99); Magnesium, Blood 2.2 mg/dL (1.6-2.4); Potassium, Blood 3.4 mmol/L (3.5-5.5); Sodium, Blood 141 mmol/L (136-145)
--- NOTE | 2021-06-03 18:25 | NUR ---
SHIFT SUMMARY: PT A/O X 2 ON BEDREST IN LIFT ROOM. PT HAS COMPLAINED OF BILAT HIP PAIN WITH REPOSITIONING. TYLENOL HAS BEEN EFFECTIVE IN KEEPING AT TOLERABLE LEVEL THROUGHOUT THE DAY. WOUND CARE COMPLETED TODAY. NO CONCERNS OF INFECTION AT THIS TIME. PT EATING WELL. JO PATENT AND DRAINING YELLOW URINE WITH SEDIMENT. PT CONTINUES TO BE ON RA, NO COUGH HEARD T/OUT DAY. VSWNL. BS CONTROLLED.
--- NOTE | 2021-06-03 20:30 | NUR ---
PT IS A&OX2, AND FOLLOWS INSTRUCTIONS GIVEN. PT HAS MULTIPLE SCABS COVERING HIS BODY. PT DENIES CHEST PAIN, SOB, OR NAUSEA. IV TO RFA INFUSING NORMAL SALINE, TKO. PT HAVING A DIFFICULT TIME STATING WHAT HE WANTED, SAID IT WAS A 9X5 INCH, BUT COULDN'T EXPAND ON THIS. BLE DRESSED, AND BOOTS IN PLACE TO BLE. FLUIDS AT BEDSIDE. BED IN LOW POSITION. BED ALARM ON FOR PT SAFETY. CALL LIGHT WITHIN REACH.
--- NOTE | 2021-06-04 04:36 | NUR ---
SHIFT SUMMARY - NO ACUTE CHANGES THROUGHOUT THIS SHIFT. PT IS MORBIDLY OBESE, MINIMAL ASSIST FROM PT FOR REPOSITIONING. PT CONTINUES TO FOLLOW VERBAL INSTRUCTIONS WITHOUT DIFFICULTY. PT IS SLOW TO RESPOND AT TIMES. PT HAS SLEPT FOR APPX 2 HOURS TONIGHT. PT WAS ABLE TO TOLERATE PO FLUID SIPS OF WATER IN HIGH SEMI FOWLERS POSITION IN BED. BED ALARM ON FOR PT SAFETY. CALL LIGHT WITHIN REACH. BED IN LOW POSITION. FLUIDS AT BEDSIDE. WILL CONTINUE TO MONITOR UNTIL AM SHIFT CHANGE.
[2021-06-04 05:52] LABS: Anion Gap 8 mmol/L (6-16); Blood Urea Nitrogen 27 mg/dL (8-24); CO2, Blood 29 mmol/L (21-32); Calcium, Blood 7.4 mg/dL (8.5-10.1); Chloride, Blood 103 mmol/L (98-108); Creatinine, Blood 1.08 mg/dL (0.60-1.20); Glomerular Filtration Rate >60 (60-); Glucose, Blood 135 mg/dL (70-99); Phosphorus, Blood 2.3 mg/dL (2.5-4.9); Sodium, Blood 140 mmol/L (136-145)
--- NOTE | 2021-06-04 18:15 | NUR ---
MACHINERY MOVER REPORTED AT SHIFT END PT HAS HAD 3 LOOSE STOOLS, THEY ARE SMALL, LIQUID BROWN COLORED WITHOUT FOUL SMELL.
--- NOTE | 2021-06-05 05:47 | NUR ---
SHIFT SUMMARY LETHARGIC T/O SHIFT, ORIENTED TO SELF. 2P MAX ASSIST. JO PATENT AND DRAINING TO GRAVITY. VSS, NO ACUTE CHANGES AT THIS TIME. BED IN LOWEST POSITION WITH CALL LIGHT IN REACH. WILL CONTINUE TO MONITOR AND REPORT TO ONCOMING RN.
[2021-06-05 06:04] LABS: Albumin, Blood 2.1 g/dL (3.4-5.0); Anion Gap 7 mmol/L (6-16); Blood Urea Nitrogen 22 mg/dL (8-24); Bun/Creatinine Ratio 22.6 (12.0-20.0); CO2, Blood 29 mmol/L (21-32); Calcium, Blood 7.5 mg/dL (8.5-10.1); Chloride, Blood 102 mmol/L (98-108); Creatinine, Blood 0.98 mg/dL (0.60-1.20); Glomerular Filtration Rate >60 (60-); Glucose, Blood 126 mg/dL (70-99); Phosphorus, Blood 2.7 mg/dL (2.5-4.9); Potassium, Blood 3.2 mmol/L (3.5-5.5); Sodium, Blood 138 mmol/L (136-145)
--- NOTE | 2021-06-06 03:01 | NUR ---
PT IS ALERT AND ORIENTED TO SELF ONLY. CAN FOLLOW COMMANDS AND HELP TURN HIMSELF. COMPLAINS OF GENERALIZED PAIN. PAIN MEDICATION ADMINISTERED AND PATIENT STATES EFFECTIVENESS. PT PULLED OUT HIS IV, NEW IV IS PLACED. PT HAD A BED BATH AND LINEN CHANGE DONE. NO SIGNS OF DISTRESS. PT IS NOW SLEEPING ON BED IN LOWEST POSITION. CALL LIGHT WITHIN REACH.
[2021-06-06 06:28] LABS: Albumin, Blood 1.9 g/dL (3.4-5.0); Anion Gap 6 mmol/L (6-16); Blood Urea Nitrogen 18 mg/dL (8-24); Bun/Creatinine Ratio 17.5 (12.0-20.0); CO2, Blood 31 mmol/L (21-32); Calcium, Blood 7.4 mg/dL (8.5-10.1); Chloride, Blood 105 mmol/L (98-108); Creatinine, Blood 1.03 mg/dL (0.60-1.20); Glomerular Filtration Rate >60 (60-); Glucose, Blood 95 mg/dL (70-99); Phosphorus, Blood 2.9 mg/dL (2.5-4.9); Potassium, Blood 4.3 mmol/L (3.5-5.5); Sodium, Blood 142 mmol/L (136-145)
--- NOTE | 2021-06-06 17:36 | NUR ---
PATIENT IS ALERT AND ORIENTED TO FAMILY AND SELF. HE FOLLOWS COMMANDS AT TIMES AND REFUSES CARE OFTEN. HE HAS A POOR APPETITE, HE NEEDS TO BE HIGHLY ENCOURAGED TO EAT EVEN A FEW BITE AND DRINKS SIPS OF WATER. REPOSITIONED WITH LIFT. 2-3 PERSON TURN IN BED. CHRONIC JO IN PLACE. PATIENT FACETIMED WITH HIS TODAY. WILL CONTINUE TO MONITOR
--- NOTE | 2021-06-07 05:10 | NUR ---
A0X1 WITH SOME FORGETFULL AT TIME CALM AND PLEASANT IN THIS SHIFT FLUIDS OFFERED TOLARATED WELL JO CATH DRANING WELL ANBER URINE .NO ACUTE CHANGE IN THIS SHIFT
--- NOTE | 2021-06-07 18:41 | NUR ---
SHIFT SUMMARY- PT IS ALERT, PLESANT AND COOPERATIVE. HIS APPETITE HAS BEEN A LITTLE BETTER THAN YESTERDAY. HE HAD A SHOWER THIS AFTERNOON. HE SLEPT INTERMITENTLY THROUGHOUT THIS SHIFT.
--- NOTE | 2021-06-08 06:21 | NUR ---
SHIFT SUMMARY AOX2 WITH SOME FORGETFULLNESS AT TIME ABLE TO VOICED NEEDS CHRISTINA PAIN IN THIS SHIFT CALM MOOD AND SLEPT MOST OF THE TIME FLUIDS OFFERED DURING NURSES ROUNDS INCONT CARE DONE BY STAFF JO CATH DRANING WELL GREG URINE
--- NOTE | 2021-06-08 17:26 | NUR ---
Shift Summary A/O to self. Withdrawn and flat affect. Answer questions with simple 2-3 word responses, sometimes no response. Patient has scattered scabs throughout anterior chest, BUE/BLE, and one on scalp. Patient keeps picking at scabs and reopening them. Advised to leave alone so they can heal. L/S dim/clear. On 3L O2, but patient keeps pulling NC off. Desats to 84% on RA, up to 94% on 3L. Able to follow some simple commands. Tapia patent and draining to gravity, has some leakage at times. Appetite is good, SANDER MACHINE assists with meals. Awaiting placement.
--- NOTE | 2021-06-09 03:54 | NUR ---
SHIFT SUMMARY A/O X 1-2. ANSWERS QUESTIONS /c 1-2 WORD SENTENCES. COOPERATIVE WITH CARE. NO C/O PAIN/DISCOMFORT. APPEARED TO REST MUCH OF THE NIGHT. JO SECURED AND DRAINING; HOWEVER, AT TIMES WILL LEAK. REPOSITIONED /c LIFT. NO ACUTE CHANGES NOTED OVERNIGHT. BED REMAINS IN LOWEST POSITION; ALARM ON. CALL LIGHT WITHIN REACH; DOES NOT UTILIZE. REPORT TO ONCOMING RN.
--- NOTE | 2021-06-09 17:28 | NUR ---
SHIFT SUMMARY PT AOX2; PT FLAT AFFECT. ENCOURAGED THE PT TO EAT AND DRINK TODAY. PT HAS SCATTERRED EXCORIATION THROUGHOUT HIS BODY. PT IS ON 4L OF O2 VIA NC, SATS ABOVE 90%. PT AWAITS PLACEMENT. BED IS IN THE LOWEST POSITION AND CALL LIGHT WITHIN REACH
--- NOTE | 2021-06-10 04:57 | NUR ---
81 year old Male with Covid 19 & Sepsis continues to need 2 max assist for bed mobility & toileting. PT had cxr which showed ground glass appearance. PT on 4 l nc tokeep sats greater than 92%. PT has multiple scabs scattered from picking at skin. Skin care done with wound paper cleaner & barrier cream. Tapia patent has some redness & antifungal appled to penis & groin. PT has speech therapy recommendation meds whole in applesauce but took a long time to swallow meds. Poor appetite & fluid intake needs fed. DC planning to facilitate a higher level of care.Lift to chair when OOB. Continues in inhanced isolation droplet. Medicated for bilat le pain with tylenol 650 mg.
--- NOTE | 2021-06-10 06:55 | NUR ---
PT with covid 19, Parkinsons, sepsis, chronic burciaga removed his oxygen this AM & room air sat 82 to 85%. Required 4 l nc to get sats greater than 92%.e refused AM meds reapproached & he finally took.
--- NOTE | 2021-06-10 12:20 | NUR ---
O2 SAT 85% ON RA. O2 AT 2 LPM NASAL CANNULA RESTARTED. WILL MONITOR.
--- NOTE | 2021-06-10 18:01 | NUR ---
REMAINS IN ISOLATION DUE TO COVID. PATIENT WAS ON ROOM AIR FOR A SHORT PERIOD OF TIME TODAY AFTER MD ROUNDING BUT SAT WAS NOTED TO BE 85% RA ON VS AT NOON. O2 AT 2 LPM NASAL CANNULA WAS RESUMED. O2 SATURATION WAS 90-91% WITH LAST CHECK. NO IV NOTED. MEDICATED PER E-JUL. WILL MONITOR.
--- NOTE | 2021-06-11 07:17 | NUR ---
PT more alert this shift. He repeatedly removed oxygen 2 l nc & room air sats 85%. He has poor appetite & fluid intake. Medicated x 1 with tylenol for bilat LE pain with helpful effect. Very poor historian PT says he is . Tapia cath patent drains lloyd urine. Skin with multiple scattered scabs self inflicted. Wound care done.
--- NOTE | 2021-06-11 17:02 | NUR ---
PATIENT MOSTLY LIES WITH EYES CLOSED. OPENS EYES TO VERBAL STIMULI OR WHEN THE ROOM IS ENTERED. MOSTLY RESPONDS TO DIRECT QUESTIONS. CONSUMED VERY LITTLE FOOD REPORTED BY ARCHITECT NAVAL BUT TOLERATING PO FLUIDS. TAKING MEDS WITH APPLESAUCE. LIKES TO LIE NAKED IN THE BED. SACRAL PROTECTOR NOTED ON PATIENT TODAY WHEN ASSISTING ARCHITECT NAVAL TO CHANGE THE ATTENDS. NO C/O PAIN VOICED WHEN ASKED. WILL MONITOR.
--- NOTE | 2021-06-12 06:57 | NUR ---
PT with DX of morbid obesity DM Parkinsons MIK covid 19 sepsis chronic burciaga cath UTI. He is dependent for all ADLS toileting bed mobility & is immobile. PT is hypoxic 81% on room air sats 90 to 92 % with 2 to 4l nc. Removes nasal canula at times & throws it across room. Flat affect withdrawn PT has DC planning issues. Medicated with tylenol 650 mg for s/sxof pain with helpful effect. PT needs crushable meds crushed & feeding. Very poor oral intake.
--- NOTE | 2021-06-12 11:03 | NUR ---
PATIENT REMOVED O2. DR. ANDREWS WANTS TO TRIAL PATIENT WITHOUT O2 AND BE NOTIFIED OF SAT. ATTEMPTED TO CALL SPOUSE AT NUMBER PROVIDED BY SPOUSE TO VERIFY IF HE USES O2 AT HOME. NUMBER NOT CORRECT. WILL MONITOR.
--- NOTE | 2021-06-12 12:09 | NUR ---
SPOKE WITH DR. ANDREWS TO UPDATE ABOUT RA O2 SAT RUNNING STEADILY AT 89% IN THE LAST 45 MINUTES OR SO SINCE THE O2 WAS REMOVED.
--- NOTE | 2021-06-12 12:23 | NUR ---
SPOKE WITH DR. ANDREWS AGAIN ABOUT O2 AT RUNNING 80-81%. STATED TO RESUME O2 AT 4 LPM. O2 REAPPLIED.
--- NOTE | 2021-06-12 12:52 | NUR ---
SPOKE WITH ALEJANDRO RIBERA, JOB PLACEMENT OFFICER NURSE ABOUT THE NEED FOR AN IV TO BE PLACED. DISCUSSED POWERGLIDE. STATES SHE WILL SEE PATIENT SHORTLY.
--- NOTE | 2021-06-12 13:11 | NUR ---
PORTABLE CXR COMPLETE. O2 SAT 97% ON 4 LPM NASAL CANNULA.
[2021-06-12 13:33] LABS: Bun/Creatinine Ratio 17.9 (12.0-20.0); Calcium, Blood 8.4 mg/dL (8.5-10.1); Creatinine, Blood 3.02 mg/dL (0.60-1.20); Potassium, Blood 3.9 mmol/L (3.5-5.5)
--- NOTE | 2021-06-12 15:15 | NUR ---
IV ATTEMPTED PER ALEJANDRO RIBERA, PRIVACY OFFICER NURSE. SHE IS CONSULTING SOMEONE FOR POWERGLIDE PLACEMENT.
--- NOTE | 2021-06-12 16:05 | NUR ---
@5450, SACRAL PROTECTOR CHANGED AFTER ATTENDS CHANGED PER IN FLIGHT REFUELING SYSTEM REPAIRER. SKIN CARE CREAM APPLIED. SACRAL AREA NOTED PURPLISH COLOR BLANCHABLE AND INTACT. TOLERATED WELL.
--- NOTE | 2021-06-12 16:26 | NUR ---
RA ATTEMPTED BY PATIENT BUT DID NOT TOLERATE. O2 SAT RUNNING 81-85% AFTER APPROXIMATELY AN HOUR ON RA. MD NOTIFIED AND O2 RESUMED AT 4 LPM NASAL CANNULA. THIS AFTERNOON PATIENT WAS VERY COMPLIANT KEEPING THE O2 CANNULA ON. PATIENT STATES HE IS ON HOME O2. ORDERS RECEIVED FOR IVF AND RENDIZIVIR. PERIPHERAL IV ATTEMPTED PER CHARGE NURSE. POWERGLIDE INSERTION IN PROGRESS. PATIENT HAS VERY LITTLE PO FOOD OR FLUID INTAKE. JO INTACT. INCONTINENT OF STOOL. SACRAL PROTECTOR CHANGED TODAY. ACCUCHECKS LEVELS REQUIRED SLIDING SCALE COVERAGE. SEE E-MAR. ATTEMPTED TO CALL SPOUSE BUT THE NUMBER PATIENT PROVIDED WASN'T A WORKING NUMBER. WILL MONITOR.
--- NOTE | 2021-06-13 05:26 | NUR ---
PATIENT HAS NOT HAD ANY ACUTE CHANGES TO REPORT OF. CONTINUES TO PICK AT SCABS ON HIS BODY AND PICK AT/REMOVE ANY DEVICES HE CAN GET HIS HANDS ON INCLUDING HIS IVs, BRIEF, ETC. OTHERWISE AWAITING PLACEMENT FOR DISCHARGE. CALL LIGHT WITHIN REACH.
[2021-06-13 05:41] LABS: Bun/Creatinine Ratio 18.7 (12.0-20.0); Calcium, Blood 8.1 mg/dL (8.5-10.1); Creatinine, Blood 3.21 mg/dL (0.60-1.20)
[2021-06-13 07:44] LABS: Hematocrit 30.6 % (37.0-53.0); Hemoglobin 9.7 g/dL (13.5-17.5); Mean Corpuscular HGB 28.3 pg (26.0-34.0); Mean Corpuscular HGB Conc 31.7 g/dL (31.5-36.5); Mean Corpuscular Volume 89 fL (80-100); Mean Platelet Volume 11.2 fL (9.1-12.4); Platelet Count 478 K/mm3 (150-400); RDW Coefficient Variation 15.6 % (11.7-14.2); RDW Standard Deviation 51.4 fL (35.1-46.3); Red Blood Cell Count 3.43 M/mm3 (4.30-5.90); White Blood Cell Count 7.95 K/mm3 (4.00-11.30)
--- NOTE | 2021-06-13 15:14 | NUR ---
Case Conference Note Spoke with Care Team including cook soupSKY Castelan, Primary RN Candida, and Dr Lyon. Discussed case and concerns. Pt has been pulling out his IVs, pulling on his Tapia Catheter, and spitting out his medications. Family may benefit from revisiting goals of care. Called and spoke with Pt's daughter Tiny. Provided update and engaged in therapeutic conversation regarding goals of care. Reviewed current plan of care and discussed considering comfort care and hospice. Tiny reports having a conversation after our last conversation with family and they left the decision up to her. Offered therapeutic listening as she reports caring for her who is suffering from Stage 4 cancer. Continued therapeutic listening and answered questions. She reports plan to discuss further with family on whether Pt would want to continue treatment or focus on quality of life and comfort. Tiny reports she will call back later today or tomorrow after reaching out to family. She expresses appreciation and reports no other concerns at this time. Palliative Care will remain available.
--- NOTE | 2021-06-13 17:35 | NUR ---
NO ACUTE CHANGES AT THIS TIME. PT AOX1 AND PULLS AT ALL LINES AND IVs. PT STILL HAS JO, BUT HAS TRIED TO PULL ON THIS WELL. MULTIPLE ATTEMPTS AT IV HAS OCCURRED WITH NO SUCCESS. DR HAS BEEN MADE AWARE OF THE IV PLACEMENT DIFFICULTIES. PT ALSO HAS BEEN STICKING HIS HANDS IN HIS STOOL AND SMEARING IT AROUND. BED ALARM IS IN PLACE WILL CONTINUE TO MONITOR.
--- NOTE | 2021-06-13 17:51 | NUR ---
DR ANDREWS HAS BEEN NOTIFIED BY CHARGE OF THE DIFFICULTY IN GETTING IV. DR ANDREWS HAS APPROVED POWERGLIDE TO BE ATTEMPTED TOMORROW. PALLIATIVE CARE IS ALSO WAITING TO HEAR BACK FROM DAUGHTER TOMORROW AND A CHANGE IN CARE STATUS COULD HAPPEN. DR ANDREWS KNOWS LACTATED RINGER WAS UNABLE TO BE GIVEN TODAY.
--- NOTE | 2021-06-14 04:53 | NUR ---
PATIENT DID NOT SLEEP MOST OF THE NIGHT. HE CONTINUES TO PICK AND PULL AT [employer] WITHIN HIS REACH. I WAS ABLE TO PLACE A PIV AT THE START OF SHIFT IN WHICH HE WAS GIVEN THE ORDERED 1L LRs BUT DISPITE THE IV BEING WRAPPED EXTREMELY WELL HE WAS ABLE TO WORK THE LAYERS OF TAPE AND COBAN OFF AND REMOVED THE IV. FAMILY TO MEET WITH PALIATIVE CARE TODAY TO DECIDE IF COMFORT CARE/HOSPICE IS THE ROAD TO GO DOWN AT THIS TIME. CALL LIGHT WITHIN REACH.
[2021-06-14 06:04] LABS: Bun/Creatinine Ratio 21.9 (12.0-20.0); Calcium, Blood 8.3 mg/dL (8.5-10.1); Creatinine, Blood 3.75 mg/dL (0.60-1.20); Potassium, Blood 3.8 mmol/L (3.5-5.5)
--- NOTE | 2021-06-14 13:14 | NUR ---
Spoke with Pt's daughter Tiny. Tiny reports speaking with family and family agrees Pt would want to focus on comfort at this stage in his life. Family elects comfort care for Pt. Educated on comfort care philosophy with V/U made by Tiyn. Offered therapeutic listening and answered questions. Tiny reports some family will plan to visit tomorrow. Tiny expresses appreciation and reports no other concerns at this time. Spoke with Primary RN Emily and discussed case. Spoke with Dr Rodriguez and discussed case. Placed comfort care order, comfort care order set, and D/C maintenance medications per V/O from Dr Rodriguez. Lopressor, Prilosec, ointments, and powders continued for comfort. Palliative Care will remain available.
--- NOTE | 2021-06-14 17:42 | NUR ---
SHIFT SUMMARY 81 Y MALE ADMITTED WITH SEPSIS. PT IS A&O TO SELF AND OCCASIONALLY TO PLACE. PT HAS BEEN PLEASANT AND COOPERATIVE WITH CARE BUT VERY RESTLESS AND FORGETFULL. PALLIATIVE CARE WORKED WITH FAMILY AND CHANGED PT TO COMFORT CARE. PT HAS BEEN RESTING IN BED, FREQUENT REPOSIIONING DONE. PT WAS GRIMACING AND SAYING "OUCH" BUT HE WAS UNABLE TO VERBALIZE PAIN. MEDICATED WITH TYELENOL AND IT DID SEEM TO HELP PT'S RESTLESSNESS. PT'S FAMILY PLANNING TO COME AND VISIT TOMORROW. NO OTHER CHANGES TO REPORT THIS SHIFT.
--- NOTE | 2021-06-14 20:39 | NUR ---
PT APPEARS RESTLESS WITH LIGHT ON. DOES NOT WANT HIS NIGHT MEDICATIONS. REQUESTED TO GET SOME SLEEP SO LIGHT WAS TURNED OFF.
--- NOTE | 2021-06-14 22:01 | NUR ---
PT RUNNING HAND ALONG BEDRAIL, PULLING AT BLANKET, STATLOCK REPLACED DUE TO PT PICKING IT OFF. PT HAS BEEN MEDICATED WITH ATIVAN AND ROXANOL SECONDARY TO ANXIETY AND COMPLAINTS OF BACK PAIN.
--- NOTE | 2021-06-15 00:04 | NUR ---
PT FIDGETING IN BED AND ROLLING AROUND BUT DENIES PAIN OR ANXIETY.
--- NOTE | 2021-06-15 04:34 | NUR ---
MONEY ROOM TELLER SUMMARY ADMITTED FOR SEPSIS. PT WAS PLACED ON COMFORT CARE YESTERDAY. HE HAS BEEN COMPLAINING OF PAIN TO HIS BACK THROUGHOUT THE SHIFT BUT WHEN ASKED ABOUT IT JUST RESPONDS "OH LORDY". PT APPEARS VERY ANXIOUS AND MEDICATED WITH ATIVAN X2. GIVEN ROXANOL X2 FOR PAIN. HE HAS BEEN PICKING AT HIS STATLOCK AND JO THROUGHOUT THE SHIFT. HAS NOT GOTTEN ANY REST AND PT APPEARS ANXIOUS WHEN LIGHTS ARE TURNED OUT. PT IS A LIFT ASSIST. HE RIPS UP ANY ATTENDS PLACED AND HAS PICKED APART A PERSONAL FAN. PT HAS MULTIPLE OPEN SORES TO HIS BODY, IN DIFFERENT STAGES OF HEALING. HE HAS SCRATCHED OPEN THREE SCABS AND HAS SCATTERED DRIED BLOOD.
--- NOTE | 2021-06-15 06:07 | NUR ---
PT IS CURRENTLY RESTING AFTER MEDICATION.
--- NOTE | 2021-06-15 09:47 | NUR ---
THE PT APPEARSZ COMFORTABLE AT THIS TIME HARD TO AWAKEN, BREAKFASZT HELD DUE TO ASZPIRATION RISK
--- NOTE | 2021-06-15 09:48 | NUR ---
PT SLEEPY ABLE TO TAKE AM MEDICATIONS WITH APPLESAUCE AND SIPS OF WATER. FALLS ASLEEP
--- NOTE | 2021-06-15 11:19 | NUR ---
PT SLEEPING AWAKENED FOR NA SIP OF WATER. APPEARS COMFORTABLE
--- NOTE | 2021-06-15 13:02 | NUR ---
PATIENT ARRIVED TO UNIT FROM PCU, PATIENT IN SLEEPY STATE BUT EASY TO AROUSE. NO ACUTE DISTRESS NOTED. BED ALARM ACTIVATED.CALL HEBERT WITHIN REACH.
--- NOTE | 2021-06-15 13:56 | NUR ---
Comfort care visit made earlier. Pt sleeping, did not wake to voice or touch. I did not disturb. He had recently been medicated for s/s and appears very comfortable and settled while sleeping. No nonverbal indicators of pain noted. No visitors at bedside at this time.
--- NOTE | 2021-06-15 14:53 | NUR ---
PT MEDICATED FOR PAIN, PT IS MORE AWAKE COMPARED TO THIS AM. PT IS PICKING AT SCABS SOCKS APPLIED TO HIS HAND IN HOPES TO PREVENT SCRATCHING
--- NOTE | 2021-06-15 15:44 | NUR ---
PATIENT IS COMFORTABLE,NO ACUTE DISTRESS NOTED.
--- NOTE | 2021-06-15 18:28 | NUR ---
pt appears comfortable. not takeing much po. did drink ensure for lunch and dinner. pt was medicated for pain x 1 today. repositioned t/o the day. bed alarm on, call light in reach
--- NOTE | 2021-06-15 22:00 | NUR ---
PT MEDICATIONS HELD AT THIS TIME PT IS CURRENTLY SLEEPING AND ON COMFORT CARE. I WILL ADMINISTER THEM WHEN PT WAKES UP.
--- NOTE | 2021-06-15 23:45 | NUR ---
PT CURRENTLY SLEEPING WITH THE LIGHTS ON. HE HAS SOME SHALLOW BREATHING. DOES NOT APPEAR TO BE UNCOMFORTABLE OR IN PAIN.
--- NOTE | 2021-06-16 04:41 | NUR ---
FREIGHT SORTER SUMMARY PT IS DNR/COMFORT CARE. HE WAS RESTING AT THE START OF THE SHIFT AND HAD DAUGHTER AND SON-IN-LAW VISITING. PT CONTINUED TO REST BUT WOKE UP AROUND 0230 AND BEGAN PULLING AT HIS CATHETER AND PICKING AT HIS SKIN. PT WAS MEDICATED WITH PRN ROXANOL FOR HIS BACK PAIN AND ATIVAN TO HELP HIM SLEEP. PT IS CURRENTLY RESTING. NO OTHER CONCERNS THIS SHIFT.
--- NOTE | 2021-06-16 09:16 | NUR ---
PT SHAKING AND GRIMICING WITH POSITION CHANGES. PT WAS GIVEN AM SINEMET AND 10 MG ORAL MORPHINE AND REPOSITIONED. WILL CONTINUE TO MONNITOR AND ASSESS FOR CHANGES
--- NOTE | 2021-06-16 10:07 | NUR ---
patient is resting no acute distress noted.
--- NOTE | 2021-06-16 16:24 | NUR ---
Patient family at bedside, patient resting with eyes closed noted chest rise and fall.Family was advised to call if assistance needed nurse provide privacy.
--- NOTE | 2021-06-16 18:03 | NUR ---
Patient daughter at bedside, daughter request to feed her dad,patient daughter request was respected.Patient and daughter privacy respected. Daughter was advised to call if assistance is needed.
--- NOTE | 2021-06-16 23:43 | NUR ---
Received patient stable, family at bedside, request help as patient needs. Medicated patient per request this time. See eMAR. We are monitoring patient.
--- NOTE | 2021-06-17 00:50 | NUR ---
No changes in patient status.
--- NOTE | 2021-06-17 05:33 | NUR ---
Patient stable at this time. No acute changes noted.
--- NOTE | 2021-06-17 12:16 | NUR ---
FAMILY AT BEDSIDE. GAVE MEDICATIONS FOR SECRETIONS AND REPOSITIONED PATIENT.
--- NOTE | 2021-06-17 17:27 | NUR ---
Pt's daughter Marilyn requested a visit from Palliative Care this evening. Upon my arrival, daughter was visibly upset. She reports the facility her father has been living at told her the patient (her father) was being evicted from his room. He is currently non-responsive, breathing is noisy and moist. Pt is being medicated appropriately. I will remain available.
--- NOTE | 2021-06-17 18:52 | NUR ---
MULTIPLE FAMILY MEMBERS AT BEDSIDE.
--- NOTE | 2021-06-17 18:53 | NUR ---
FAMILY MEMBER UPSET BY DRUM DRIER'S BEDSIDE MANNER. REFERRED TO PALLIATIVE CARE AND POSSIBLY PATIENT ADVOCATE.
--- NOTE | 2021-06-17 21:23 | NUR ---
Received patient stable, Family at bed side. Pt just being medicated for pain. We will continue to monitor.
--- NOTE | 2021-06-18 01:08 | NUR ---
Patient remain stable, no complaint or disconfort noted. Family at bedside.
--- NOTE | 2021-06-18 04:04 | NUR ---
Patient does not seems to be doing well at this hour. Patient family at bedside voices concern. We will continue to provide care and support.
--- NOTE | 2021-06-18 11:47 | NUR ---
PT FAMILY REQUESTED FOR PATIENT TO BE MEDICATED FOR PAIN. TREATED PER EMR.
--- NOTE | 2021-06-18 11:48 | NUR ---
MANY FAMILY MEMBERS PRESENT AT BEDSIDE.
--- NOTE | 2021-06-18 11:51 | NUR ---
PT'S FAMILY REPORTS THAT PT AT 1032. CHARGE NURSE CONFIRMED AND OBTAINED FAMILY'S WISHES FOR ARRANGEMENTS. ENGRAVER WOOD TO NOTIFY PHYSICIAN WELL.
--- NOTE | 2021-06-18 12:31 | NUR ---
Spiritual care visit conducted. After receiving a request for spiritual care, I visit family. Pt is non-responsive, family are grieving and the family tells me about how angry they are. They explain about how they frustrated about the they were treated by the screeners, the pt's RN, the pt's Home Delivery Driver, and the pt's doctor. I discuss with them about our Patient Advocate and how the system works and assure them that I will have her talk with them before they leave (I contact Pateint Advocate Adia immediately following my visit and she states that she will go to visit with the family promptly). I provide grief support, therapeutic listening and a calming presence. Pt's family shows eviedence of being comforted. I inform pt's RN of pt's .
== END 2021-06-18 11:50 | DRG 871 ==
LOC: ER 18:21 → PCU 23:34 → MEDS 05-27 17:31
PROVIDERS: Family Medicine; Hospitalist; Student in an Organized Health Care Education/Training Program; ADMIT Internal Medicine
PROC: 8E0ZXY6 Isolation (ICD-10-PCS; principal; 2021-06-12)
PROC: XW033E5 Introduction of Remdesivir Anti-infective into Peripheral Vein, Percutaneous Approach, New Technology Group 5 (ICD-10-PCS; 2021-06-12)
PROC: 3E0DX3Z Introduction of Anti-inflammatory into Mouth and Pharynx, External Approach (ICD-10-PCS; 2021-06-12)
DX: A41.81 Sepsis due to Enterococcus (principal); J96.01 Acute respiratory failure with hypoxia; G92.8 Other toxic encephalopathy; J12.9 Viral pneumonia, unspecified; U07.1 COVID-19; Z51.5 Encounter for palliative care; Z66 Do not resuscitate; J12.82 Pneumonia due to coronavirus disease 2019; N17.9 Acute kidney failure, unspecified; E87.4 Mixed disorder of acid-base balance; N39.0 Urinary tract infection, site not specified; I13.0 Hypertensive heart and chronic kidney disease with heart failure and stage 1 through stage 4 chronic kidney disease, or unspecified chronic kidney disease; L03.115 Cellulitis of right lower limb; L03.116 Cellulitis of left lower limb; Z20.822 Contact with and (suspected) exposure to COVID-19; Z85.46 Personal history of malignant neoplasm of prostate; I50.9 Heart failure, unspecified; I48.91 Unspecified atrial fibrillation; Z78.1 Physical restraint status; E86.0 Dehydration; R74.01 Elevation of levels of liver transaminase levels; E87.6 Hypokalemia; R65.20 Severe sepsis without septic shock; E83.39 Other disorders of phosphorus metabolism; Z68.32 Body mass index [BMI] 32.0-32.9, adult; I87.2 Venous insufficiency (chronic) (peripheral); N18.32 Chronic kidney disease, stage 3b; E78.5 Hyperlipidemia, unspecified; K21.9 Gastro-esophageal reflux disease without esophagitis; E66.01 Morbid (severe) obesity due to excess calories; G47.33 Obstructive sleep apnea (adult) (pediatric); E11.42 Type 2 diabetes mellitus with diabetic polyneuropathy; E11.22 Type 2 diabetes mellitus with diabetic chronic kidney disease; G43.909 Migraine, unspecified, not intractable, without status migrainosus; G20 Parkinson's disease; F02.80 Dementia in other diseases classified elsewhere, unspecified severity, without behavioral disturbance, psychotic disturbance, mood disturbance, and anxiety; E89.0 Postprocedural hypothyroidism; Z91.09 Other allergy status, other than to drugs and biological substances; Z79.84 Long term (current) use of oral hypoglycemic drugs; Z79.02 Long term (current) use of antithrombotics/antiplatelets; Z79.4 Long term (current) use of insulin; Z79.899 Other long term (current) drug therapy; Z90.49 Acquired absence of other specified parts of digestive tract; Z98.890 Other specified postprocedural states
CPT/HCPCS: 0241U; 36415; 36600; 51702; 70450; 71045; 76770; 80048; 80053; 80069; 81001; 82465; 82803; 82947; 83605; 83735; 83880; 84100; 84145; 84146; 84478; 84484; 85025; 85027; 87040; 87077; 87086; 87106; 87186; 92526; 92610; 93005; 93010; 96365; 96367; 96375; 97161; 97165; 97530; 99285-25; A9270; C1751; J0248; J0295; J0456; J0713; J1644; J1815; J2060; J2310; J2543; J3370; J3480; J7030; J7042; J7050; J7060; J7070; J7120; P9046